=== PATIENT | female | born 1945 | race Caucasian/White ===

== ENCOUNTER → 2019-04-15 13:11 | Outpatient (CLI) | payer OTHER, SELFPAY ==
--- NOTE | 2019-04-15 13:16 | DI.RAD.S_ITS ---
PROCEDURE: XR HAND LT MIN 3V INDICATIONS: Fall, 5th finger pain and bruising TECHNIQUE: 3 views of the hand(s) acquired. COMPARISON: None. FINDINGS: Bones: No fractures or dislocations. Carpal bones are normally aligned. No suspicious bony lesions. Joint space narrowing and yobany--articular osteophyte formation at the interphalangeal joints of the digits is present, as well as at the 1st carpal metacarpal joint and scaphotrapezial joint. Soft tissues: No suspicious soft tissue calcifications. IMPRESSION: 1. Osteoarthritis. 2. No acute fracture. No osseous lesion. If symptoms and/or clinical suspicion for pathology persist, further assessment with repeat, or advanced imaging (e.g., CT, MRI, or bone scan) may be helpful for further assessment. Dictated by: Debbie Menjivar M.D. on 04/15/2019 at 13:44 Approved by: Debbie Menjivar M.D. on 04/15/2019 at 13:45
--- NOTE | 2019-04-15 13:16 | DI.RAD.S_ITS ---
PROCEDURE: XR RIBS LT MIN 3V W CXR1V INDICATIONS: Fall, L rib pain TECHNIQUE: 2 views of the left ribs were acquired, along with a single view chest. COMPARISON: None. FINDINGS: Surgical changes and devices: None. Bones and chest wall: No fractures or dislocations. No suspicious bony lesions. Overlying soft tissues appear unremarkable. Lungs and pleura: No pleural effusions or pneumothorax. Lungs appear clear. Mediastinum: Mediastinal contours appear normal. Heart size is normal. IMPRESSION: No acute fracture. No osseous lesion. If symptoms and/or clinical suspicion for pathology persist, further assessment with repeat, or advanced imaging (e.g., CT or bone scan) may be helpful for further assessment. Dictated by: Debbie eMnjivar M.D. on 04/15/2019 at 13:45 Approved by: Debbie Menjivar M.D. on 04/15/2019 at 13:46
== END ==
PROVIDERS: PCP Family Medicine; Visit Provider Physician Assistant
DX: R07.81 Pleurodynia (principal); S60.052A Contusion of left little finger without damage to nail, initial encounter; M19.042 Primary osteoarthritis, left hand; W19.XXXA Unspecified fall, initial encounter
CPT/HCPCS: 71101; 73130

== ENCOUNTER → 2022-01-24 12:26 | Outpatient (CLI) | payer OTHER, SELFPAY ==
--- NOTE | 2022-01-24 | DI.RAD.S_ITS ---
PROCEDURE: FL BARIUM SWALLOW INDICATIONS: Dysphagia, unspecified COMPARISON: None. FINDINGS: Function: There is normal esophageal peristalsis. No elicited gastroesophageal reflux. There is normal transit of a calibrated barium tablet through the esophagus into the stomach. There is pooling of contrast material in the bilateral vallecula and piriform sinuses which was cleared with repeat swallows. Morphology: Air-contrast images demonstrate normal mucosal morphology. Single contrast views show no esophageal strictures, extrinsic mass effects, or diverticula. Limited images of the stomach demonstrate normal appearance. IMPRESSION: 1. No evidence of Zenker's diverticulum. 2. Pooling of contrast material the bilateral vallecula and piriform sinuses. If there is clinical concern for pathologic pooling, consider Speech Pathology coordinated modified barium swallow study. Dictated by: Lexy Perez MD, PhD on 01/24/2022 at 14:19 Approved by: Lexy Perez MD, PhD on 01/24/2022 at 14:21
== END ==
PROVIDERS: PCP Internal Medicine; Referring Provider Internal Medicine Gastroenterology; Visit Provider Internal Medicine Gastroenterology
DX: R13.10 Dysphagia, unspecified (principal)
CPT/HCPCS: 74220

== ENCOUNTER → 2022-04-04 10:18 | Outpatient (CLI) | payer OTHER, SELFPAY ==
--- NOTE | 2022-04-04 | DI.RAD.S_ITS ---
PROCEDURE: FL BARIUM SWALLOW W SPEECH INDICATIONS: Dysphagia, unspecified COMPARISON: TECHNIQUE: Examination was conducted in conjunction with speech pathology per standard protocol. In the lateral projection, filming was performed of the patient swallowing. AP projection filming may also be performed with patient swallowing. COMPARISON: [facility], , [place] BARIUM SWALLOW, 01/24/2022, 13:01. FINDINGS: Function: The oral preparatory phase appears normal, with proper containment. The subsequent oral propulsive phase, pharyngeal phase, and esophageal phase of swallowing also appear normal with all proffered substances. Single episode of laryngotracheal penetration with silent aspiration with thin liquid. No pathologic vallecular pooling. Morphology: No cricopharyngeal bar is identified. No cervical esophageal webs. No Zenker's diverticulum. No strictures. IMPRESSION: Single episode of laryngotracheal penetration and silent aspiration with ingestion of thin liquids. Otherwise, unremarkable modified barium swallow study. Please refer to separate speech pathology report for further details. Dictated by: Prakash Cano M.D. on 04/04/2022 at 13:01 Approved by: Prakash Cano M.D. on 04/04/2022 at 13:02
--- NOTE | 2022-04-04 17:24 | ST.SWALLOW ---
Visit Care Team Role Provider Type Toney Valle MD Attending Provider Non-Staff Family Provider Primary Care Provider Referring Provider Specialty: Internal Medicine Address: [address] [place] [address] [address], [place], [address] Email: Modified Barium Swallow Study EXCELSIOR MACHINE FEEDER Modified Barium Swallow Study Start: 04/04/22 17:02 Freq: Status: Active Protocol: Document 04/04/22 17:02 LNK (Rec: 04/04/22 17:24 LNK [id number]) Modified Barium Swallow Study Total Time Visit Start Time 11:30 Visit Stop Time 12:30 Total Visit Minutes [address] Valle Reason for Referral dysphagia Setting Setting Outpatient Care Patient Information Identification Type Name,Date of Patient History Pt was seen today for a clinical swallowing evaluation secondary to her c/o frequent cough/choking with any thing she eats or drinks. She reports significant PND with possible allergies. Pt has not been evaluated by an integration assistant. Additionally, she reports coughing on her saliva . Pt recently underwent a barium swallow study which determined atypical pooling in the valeculla and the pyriform sinuses.. Subjective Observations Pt was seated in the fluoroscopy cchair with directions nad procedures described to her, She agreed to continue. Patient Positioning Position View Lat-A/P Imaging Lateral View Textures Administered Trials Presented Thin Liquid via Spoon,Thin Liquid via Cup,[place] Liquid via Spoon,[place] Liquid via Cup,Pudding Thick Liquid via Spoon,Regular Textures,Barium Tablet Oral Phase Source: MBSIMP (TM) (C) Bolus Specific Scoring Grid Lip Closure No Impairment (WNL) Tongue Control During Bolus Hold No Impairment (WNL) Bolus Prep/Mastication No Impairment (WNL) Bolus Transport/Lingual Motion No Impairment (WNL) A/P Lingual Propulsion Delay No Oral Residue No Impairment (WNL) Residue Clearing No Impairment (WNL) Nasal Regurgitation No Additional Oral Phase Observations OME was observed to be WNL. DKS was also WNL U/L dentures in place and well fitted. Oral phase was observed to be WFL Pharyngeal Phase Source: MBSIMP (TM) (C) Bolus Specific Scoring Grid Delayed Initiation of Pharyngeal Swallow No Soft Palate Elevation No Impairment (WNL) Tongue Base Strength/Range of Motion Mild Impairment Residue Along the Tongue Base WNL to trace Clearance of Residue Along Tongue Base No Impairment (WNL) Laryngeal Elevation Mild Impairment Anterior Hyoid Movement No Impairment (WNL) Epiglottic Range of Motion Mild Impairment Vallecular Residue No: WNL to trace Clearance of Vallecular Residue WFL Laryngeal Vestibular Closure Mild Impairment Pharyngeal Contraction Minimal Impairment Posterior Pharyngeal Wall Residue No Residue in the Pyriform Sinuses No: WNL to trace Esophageal Clearance Upright Position WFL Pharyngoesophageal Backflow Observed No A/P View Textures Administered Trials Presented Barium Tablet A/P View Observations Pharyngeal Contraction No Impairment (WNL) Vocal Fold Function Good Esophageal Function No Impairment (WNL) Clinical Impressions Dysphagia Type pharyngeal Findings Pt presented with mild pharyngeal phase dysphagia secondary to reduced strength of the tongue base. This weakness contributed to reduced laryngeal, epiglottal inversion and complete seal of the laryngeal vestibule. Penetration was observed with thin liquids x5 (PAS=3). Possible trace aspiration x1 which was cleared with cued cough. No reflexive cough observed today. No penetration or aspiration noted with nectar thick liquids. Minimal pharyngeal pooling. Rehabilitation Potential Excellent Patient Appropriate for Therapy Yes Recommendations Diet Liquids Order Thin Diet Order Clear Liquids Medication Recommendation As Tolerated Aspiration Precautions Recommended Precautions Upright at 90 Degrees, Supraglottic Swallow Treatment Plan Therapy Recommendations Inpatient Speech Therapy,Base of Tongue Exercises, Compensatory Strategy Education Compensatory Strategies Recommendations Sitting Upright (90 deg), Supraglottic Swallow Short Term Goals Pt will follow safe swallow strategies to reduce laryngeal penetration Pt will perform tongue base exercises as prescribed to increase laryngeal elevation. Conveyor Monitor Goals Pt will tolerate the least restrictive diet without s/sx aspiration.
== END ==
PROVIDERS: Family Provider Internal Medicine; PCP Internal Medicine; Referring Provider Internal Medicine; Visit Provider Internal Medicine
DX: R13.10 Dysphagia, unspecified (principal)
CPT/HCPCS: 74230; 92611

== ENCOUNTER 2022-06-03 10:30 | Outpatient (RCR) | payer OTHER, SELFPAY ==
--- NOTE | 2022-03-18 17:26 | ST.OPIE ---
Visit Care Team Role Provider Type Toney Valle MD Attending Provider Non-Staff Family Provider Primary Care Provider Referring Provider Specialty: Internal Medicine Address: [address] [place] [address] [address], [place], [address] Email: Speech-Language Pathology Initial Evaluation BABY REGISTRY SALES CONSULTANT Clinical Swallow Evaluation Start: 03/18/22 14:22 Freq: Status: Active Protocol: Document 03/18/22 17:01 LNK (Rec: 03/18/22 17:26 LNK [id number]) Clinical Swallow Evaluation Session Time Visit Start Time 14:30 Visit Stop Time 15:30 Total Visit Minutes 60 Visit Information Visit Number 1 Plan of Care Dates 03/18/22- Referral Referring Provider Dr. Valle Reason for Referral dysphagia Setting Assessment Location Outpatient Care Visit Type Note Type Initial evaluation Next Note Type Next Note Type Re-evaluation Patient Information Identification Type Name,Date of History Pt was seen today for a clinical swallowing evaluation secondary to her c/o frequent cough/choking with any thing she eats or drinks. She reports significant PND with possible allergies. Pt has not been evaluated by an protective signal installer. Additionally, she reports coughing on her saliva . Pt recently underwent a barium swallow study which determined atypical pooling in the valeculla and the pyriform sinuses. Subjective Observations Pt was accompanied by her Reported by Patient Current Diet Regular,Thin liquids Objective Assessment Mental Status Alert,Responsive,Cooperative Oral Integrity WFL Dentition Upper dentures/partials,Lower dentures/partials Lip Function Within normal limits Tongue Function Within normal limits Jaw Function Within normal limits Hard/Soft Palate Function Within normal limits Comment OME was obsered to be WNL. DKS was also WNL U/L dentures in place and well fitted Food and Liquid Trials Position During Assessment Upright (90 degrees) Liquids Trialed Thin Solids Trialed Dysphagia Mechanical,Regular Administration Type Cup single sip,Self-feeding Oral Impairment Within functional limits Oral Phase Comments Good Mastication with rotary chew. Bolus control and A=P transition WNL Pharyngeal Impairment Mildly impaired Pharyngeal Phase Comments The pt was noted to swallow each PO trial twice. Upon palpation, the hyolaryngeal elevation for each initial swallow seemed to be weak; however, the subsequent swallow for each trial was felt to be higher with more hyoid movement. No cough/ choke observed. Pt did report , after 3 teaspoons full of yogurt, a sensation of globus at her lower neck area. A trial of 1/4 consuelo cracker resulted in the same sensation . Following each trial, the pt was instructed to drink some water, which the pt reported was helpful in decreasing the globus sensation. Fatigue/Endurance Endurance WNL Results Pharyngeal phase dysphagia is suspected. A Modified Barium Swallow Study is recommended to better determine the overall function of the pt's pharyngeal structures for swallowing. A MBSS is currently scheduled for April 04, 2022. Pt has not been evaluated by an protective signal installer , which is also recommended. Findings Swallowing Function Pharyngeal phase dysphagia Severity of Swallow Impairment Mildly-moderately impaired Impact on Safety and Functioning Risk for aspiration Recommendations Instrumental Assessment Yes Swallowing Treatment Yes Frequency to be determined following the MBSS Recommended Solids Regular Recommended Liquids Thin Safety Precautions/Swallowing Remain upright (90 degrees) Recommendations during all oral intake,Small bites and sips when eating, Slow rate; swallow between bites,Alternate liquids and solids Medication Recommendations As Tolerated Education Patient/Caregiver Education Described results of evaluation,Patient expressed understanding of evaluation, Patient expressed agreement with goals & treatment plans, Family/caregivers expressed understanding of evaluation, Family/caregivers expressed agreement with goals & treatment plans,Family/ caregivers expressed understanding of safety precautions,Family/caregivers expressed understanding of feeding recommendations Goals Short-term Goals Instrumental assessment of pharyngeal swallow via MBSS
--- NOTE | 2022-03-18 17:27 | ST.OPPOC ---
Physical, Occupational & Speech Therapy At [facility] Visit Care Team Role Provider Type Toney Valle MD Attending Provider Non-Staff Family Provider Primary Care Provider Referring Provider Address: [facility] [address], [place], [address] Speech Pathology Plan of Care Plan of Care Dates 03/18/22- Referring Provider Dr. Valle Patient History Pt was seen today for a clinical swallowing evaluation secondary to her c/o frequent cough/ choking with any thing she eats or drinks. She reports significant PND with possible allergies. Pt has not been evaluated by an furnace repair mechanic. Additionally, she reports coughing on her saliva. Pt recently underwent a barium swallow study which determined atypical pooling in the valeculla and the pyriform sinuses. Short-term Goals Instrumental assessment of pharyngeal swallow via MBSS Comment: Electronically Signed by: SKYLAR Bob 03/18/22 1017 If you are in agreement with this Plan of Care, please return a signed and dated copy. I have reviewed this Plan of Care and certify that the skilled therapy services above are required to meet the patient?s needs. Physician Signature Date Printed Name and Credentials Clinical Instructor Signature Printed Name and Credentials
--- NOTE | 2022-04-09 13:43 | ST.IPDYTX ---
Visit Care Team Role Provider Type Toney Valle MD Attending Provider Non-Staff Family Provider Primary Care Provider Referring Provider Specialty: Internal Medicine Address: [address] [place], [place] [address], [place], [address] Email: FOOT DOCTOR Dysphagia Treatment FOOT DOCTOR Dysphagia Treatment Start: 03/18/22 14:22 Freq: Status: Active Protocol: Document 04/09/22 12:17 LNK (Rec: 04/09/22 13:42 LNK [id number]) Dysphagia Treatment Visit Information Visit Number 2 Plan of Care Dates 03/18/22- Setting Assessment Location Outpatient Care Visit Type Note Type Treatment Note Next Note Type Next Note Type Treatment Note Patient Information Identification Type Name,Date of Treatment Treatment Activities No PO trials due to education for the pt and her re: computer generated video normal swallow and review of pt's MBSS for comparison. Tongue base exercises ( Patricia, Misako, and rapid jaw movement) were demonstrated for pt. Pt was able to perform all exercises with minimal difficulty. Written descriptions provided for the pt. All questions were answered. Assessment Patient Response to Treatment Excellent Rehab Potential Excellent Diet Recommendations Recommendations Continue Current Diet Aspiration Precautions Recommended Precautions Supraglottic Swallow Additional Precautions demonstrated supraglotic for pt with written description provided Treatment Plan Appropriate for Continued Therapy Yes Dysphagia Goals Pt will safely tolerate the least restrictive diet without s/sx aspiration Pt will follow HEP at home as prescribed for improved strength and ROM of pharyngeal structures
--- NOTE | 2022-04-16 10:07 | ST.IPDYTX ---
Visit Care Team Role Provider Type Toney Valle MD Attending Provider Non-Staff Family Provider Primary Care Provider Referring Provider Specialty: Internal Medicine Address: [facility] [address], [place], [address] Email: NATURAL GAS BASIS TRADER Dysphagia Treatment NATURAL GAS BASIS TRADER Dysphagia Treatment Start: 03/18/22 14:22 Freq: Status: Active Protocol: Document 04/16/22 10:00 LNK (Rec: 04/16/22 10:06 LNK [id number]) Dysphagia Treatment Session Time Visit Start Time 14:30 Visit Stop Time 15:30 Total Visit Minutes 60 Visit Information Visit Number 3 Plan of Care Dates 03/18/22- Setting Assessment Location Outpatient Care Visit Type Note Type Treatment Note Next Note Type Next Note Type Treatment Note Patient Information Identification Type Name,Date of Subjective Observations Pt was accompanied by her Treatment Treatment Activities Reviewed tongue base exercises (Patricia, Misako, and rapid jaw movement) with the pt. Pt reports she is doing exercises with minimal difficulty. She did report sore muscles at the base of tongue with rapid jaw movement . Recommended that the pt reduce the frequnce of jaw movement and # of times/day. Pt agreed. All questions were answered. Assessment Patient Response to Treatment Excellent Rehab Potential Excellent Diet Recommendations Recommendations Continue Current Diet Liquids Order Thin Diet Order Clear Liquids Medication Recommendations As Tolerated Aspiration Precautions Recommended Precautions Supraglottic Swallow Additional Precautions reviewed with pt Treatment Plan Appropriate for Continued Therapy Yes Dysphagia Goals Pt will safely tolerate the least restrictive diet without s/sx aspiration Pt will follow HEP at home as prescribed for improved strength and ROM of pharyngeal structures
--- NOTE | 2022-05-15 09:11 | ST.IPDYTX ---
Visit Care Team Role Provider Type Toney Valle MD Attending Provider Non-Staff Family Provider Primary Care Provider Referring Provider Specialty: Internal Medicine Address: [facility] [address], [place], [address] Email: FISH AND WILDLIFE TECHNICIAN Dysphagia Treatment FISH AND WILDLIFE TECHNICIAN Dysphagia Treatment Start: 03/18/22 14:22 Freq: Status: Active Protocol: Document 05/15/22 08:33 LNK (Rec: 05/15/22 08:34 LNK [id number]) Dysphagia Treatment Session Time Visit Start Time 08:30 Visit Stop Time 09:00 Total Visit Minutes 30 Visit Information Visit Number 4 Plan of Care Dates 03/18/22-06/25/22 Setting Assessment Location Outpatient Care Visit Type Note Type Progress Note Next Note Type Next Note Type Treatment Note Patient Information Identification Type Name,Date of Subjective Observations Pt was accompanied by her Treatment Liquids Trialed Thin Solids Trialed Dysphagia Mechanical,Regular Treatment Activities Reviewed tongue base exercises (Patricia, Misako, and rapid jaw movement) with the pt. Added resistance to the Misako (stick tongue ouit further) and the Patricia ( increase to tile picker credit card with straw) and added Shaker exercise. Pt reports she is doing exercises with minimal difficulty. She reported no more sore muscles with rapid jaw movement. Pt agreed. All questions were answered. Assessment Patient Response to Treatment Excellent Rehab Potential Excellent Assessment of Improvement pt reports that swallowing has improved with very little coughing. Pt has been consistently practicing HEP with reported success. Am recommending a repeat MBSS at the end of May to determine the level of improvement and current aspiration risk. Pt is in agreement Diet Recommendations Recommendations Continue Current Diet Liquids Order Thin Diet Order Clear Liquids Medication Recommendations As Tolerated Comments RECOMMEND REPEAT MBSS TO DETERMINE HEP EFFICACY Aspiration Precautions Recommended Precautions Supraglottic Swallow Additional Precautions reviewed with pt Treatment Plan Appropriate for Continued Therapy Yes Therapy Recommendations REPEAT BARIUM SWALLOW WITH SPEECH (mbss) Dysphagia Goals Pt will safely tolerate the least restrictive diet without s/sx aspiration Pt will follow HEP at home as prescribed for improved strength and ROM of pharyngeal structures
--- NOTE | 2022-05-15 09:11 | ST.OPPOC ---
Physical, Occupational & Speech Therapy At [facility] Visit Care Team Role Provider Type Toney Valle MD Attending Provider Non-Staff Family Provider Primary Care Provider Referring Provider Address: [address], [place], [address] Speech Pathology Plan of Care Plan of Care Dates 03/18/22-06/25/[address] Valle Patient History Pt was seen today for a clinical swallowing evaluation secondary to her c/o frequent cough/ choking with any thing she eats or drinks. She reports significant PND with possible allergies. Pt has not been evaluated by an sharepoint engineer. Additionally, she reports coughing on her saliva. Pt recently underwent a barium swallow study which determined atypical pooling in the valeculla and the pyriform sinuses. Short-term Goals Instrumental assessment of pharyngeal swallow via MBSS Comment: Reviewed tongue base exercises (Patricia, Misako, and rapid jaw movement) with the pt. Added resistance to the Misako (stick tongue ouit further) and the Patricia (increase to bead picker credit card with straw) and added Shaker exercise. Pt reports she is doing exercises with minimal difficulty. She reported no more sore muscles with rapid jaw movement. Pt agreed. All questions were answered. pt reports that swallowing has improved with very little coughing. Pt has been consistently practicing HEP with reported success. Am recommending a repeat MBSS at the end of May to determine the level of improvement and current aspiration risk. Pt is in agreement. REPEAT BARIUM SWALLOW WITH SPEECH (mbss) RECOMMENDED Electronically Signed by: SKYLAR Bob 05/15/22 0911 If you are in agreement with this Plan of Care, please return a signed and dated copy. I have reviewed this Plan of Care and certify that the skilled therapy services above are required to meet the patient?s needs. Physician Signature Date Printed Name and Credentials Clinical Instructor Signature Printed Name and Credentials
--- NOTE | 2022-06-03 11:20 | ST.IPDYTX ---
Visit Care Team Role Provider Type Toney Valle MD Attending Provider Non-Staff Family Provider Primary Care Provider Referring Provider Specialty: Internal Medicine Address: [facility] [address], [place], [address] Email: [facility] [place] Dysphagia Treatment [facility] [place] Dysphagia Treatment Start: 03/18/22 14:22 Freq: Status: Active Protocol: Document 06/03/22 10:28 LNK (Rec: 06/03/22 11:19 LNK [id number]) Dysphagia Treatment Session Time Visit Start Time 08:30 Visit Stop Time 09:00 Total Visit Minutes 30 Visit Information Visit Number 5 Plan of Care Dates 03/18/22-06/25/22 Setting Assessment Location Outpatient Care Visit Type Note Type Progress Note Next Note Type Next Note Type Treatment Note Patient Information Identification Type Name,Date of Subjective Observations Pt was accompanied by her Treatment Liquids Trialed Thin Solids Trialed Dysphagia Mechanical,Regular Treatment Activities Reviewed tongue base exercises (Patricia, Misako, and rapid jaw movement) with the pt. Added resistance to the Misako (stick tongue out further) and the Patricia. Pt reports she almost getting the credit card lifted with straw. Pt reports she is doing exercises with minimal difficulty. She did note some infrahyoid mucle soreness. Recommended she reduce frequency of rapid jaw exercises each day. Pt agreed . All questions were answered. Assessment Patient Response to Treatment Excellent Rehab Potential Excellent Assessment of Improvement pt reports very little coughing. Pt has been consistently practicing HEP with reported success. Am recommending a repeat MBSS at the end of May to determine the level of improvement and current aspiration risk. Pt is in agreement Diet Recommendations Recommendations Continue Current Diet Liquids Order Thin Diet Order Clear Liquids Medication Recommendations As Tolerated Comments RECOMMEND REPEAT MBSS TO DETERMINE HEP EFFICACY Aspiration Precautions Recommended Precautions Supraglottic Swallow Additional Precautions reviewed with pt Treatment Plan Appropriate for Continued Therapy Yes Therapy Recommendations REPEAT BARIUM SWALLOW WITH SPEECH (mbss) Dysphagia Goals Pt will safely tolerate the least restrictive diet without s/sx aspiration Pt will follow HEP at home as prescribed for improved strength and ROM of pharyngeal structures
== END 2022-10-30 11:42 | disposition home or self-care (01) ==
LOC: SP 10:30
PROVIDERS: Family Provider Internal Medicine; PCP Internal Medicine; Referring Provider Internal Medicine; Visit Provider Internal Medicine
DX: R13.10 Dysphagia, unspecified (principal)
CPT/HCPCS: 92526; 92610

== ENCOUNTER → 2022-10-02 13:29 | Outpatient (CLI) | payer OTHER, SELFPAY ==
--- NOTE | 2022-10-02 | DI.RAD.S_ITS ---
PROCEDURE: [place] BARIUM SWALLOW W SPEECH INDICATIONS: Dysphagia COMPARISON: TECHNIQUE: Examination was conducted in conjunction with speech pathology per standard protocol. In the lateral projection, filming was performed of the patient swallowing. AP projection filming may also be performed with patient swallowing. COMPARISON: [facility], [place] BARIUM SWALLOW, 01/24/2022, 13:01. [facility], [place] BARIUM SWALLOW W SPEECH, 04/04/2022, 11:35. FINDINGS: Function: The oral preparatory phase appears normal, with proper containment. The subsequent oral propulsive phase, pharyngeal phase, and esophageal phase of swallowing also appear normal with all proffered substances. Trace laryngotracheal penetration without aspiration. Mild vallecular pooling. Morphology: No cricopharyngeal bar is identified. No cervical esophageal webs. No Zenker's diverticulum. No strictures. IMPRESSION: 1. Mild valllicular pooling. 2. Trace laryngeal penetration. No aspiration. 3. Please see separate speech pathologist's report. Dictated by: Mindy Palmer M.D. on 10/03/2022 at 8:14 Approved by: Mindy Palmer M.D. on 10/03/2022 at 8:18
--- NOTE | 2022-10-02 14:00 | ST.SWALLOW ---
Visit Care Team Role Provider Type Toney Valle MD Attending Provider Non-Staff Family Provider Primary Care Provider Referring Provider Specialty: Internal Medicine Address: [address] [place] [address] [address], [place], [address] Email: Modified Barium Swallow Study [employer] Modified Barium Swallow Study Start: 10/02/22 17:06 Freq: Status: Active Protocol: Document 10/02/22 17:07 ZS (Rec: 10/02/22 17:14 ZS [id number]) Modified Barium Swallow Study Total Time Visit Start Time 13:30 Visit Stop Time 14:00 Total Visit Minutes 30 Setting Setting Outpatient Care Patient Information Identification Type Name Patient History Initial outpatient swallow assessment completed at [facility] on 03/18/22 due to frequent coughing/choking when eating and drinking. MBS prior to swallow assessment determined atypical pooling in valeculla and pyriform sinuses. Pharyngeal phase dysphagia was suspected and repeat MBS was completed on 04/04/22. Results from 04/04/22 MBS indicated pharyngeal phase dysphagia secondary to reduced strength of the tongue base. This weakness contributed to reduced laryngeal, epiglottal inversion, and complete seal of the laryngeal vestibule. Penetration was observed with thin liquids x5 (PAS=3). Possible trace aspiration x1 which was cleared with cued cough. No reflexive cough observed today. No penetration or aspiration noted with nectar thick liquids. Minimal pharyngeal pooling. Subjective Observations Alicja reported decreased coughing and choking at home with use of exercises. Provided review of process and procedure and pt agreed to participate. Patient Positioning Position View Lat-A/P Imaging Lateral View Textures Administered Trials Presented Thin Liquid via Cup,[place] Liquid via Cup,Regular Textures Oral Phase Source: MBSIMP (TM) (C) Bolus Specific Scoring Grid Lip Closure No Impairment (WNL) Tongue Control During Bolus Hold Moderate Impairment Bolus Prep/Mastication No Impairment (WNL) Bolus Transport/Lingual Motion No Impairment (WNL) Oral Residue WFL Residue Clearing WFL Nasal Regurgitation No Additional Oral Phase Observations Oral residue noted on tongue as well as on floor of mouth. Mastication and a/p propulsion of bolus was timely and efficient. Oral phase appeared WFL with exception of tongue control during bolus hold that resulted in posterior loss of bolus and pooling in valleculla and pyriforms. Pharyngeal Phase Source: MBSIMP (TM) (C) Bolus Specific Scoring Grid Delayed Initiation of Pharyngeal Swallow Yes: head of bolus in pyriforms Soft Palate Elevation No Impairment (WNL) Tongue Base Strength/Range of Motion Mild Impairment Residue Along the Tongue Base Yes Clearance of Residue Along Tongue Base WFL Laryngeal Elevation Mild Impairment Anterior Hyoid Movement No Impairment (WNL) Epiglottic Range of Motion Mild Impairment Vallecular Residue Yes Clearance of Vallecular Residue Mild Impairment Laryngeal Vestibular Closure Mild Impairment Pharyngeal Stripping Wave No Impairment (WNL) Pharyngeal Contraction Minimal Impairment Posterior Pharyngeal Wall Residue Yes Clearance of Posterior Pharyngeal Wall Minimal Impairment Residue Upper Esophageal Sphincter Opening Minimal Impairment Residue in the Pyriform Sinuses Yes Clearance of Residue in the Pyriform Minimal Impairment Sinuses Esophageal Clearance Upright Position No Impairment (WNL) Pharyngoesophageal Backflow Observed No Additional Pharyngeal Phase Observations Posterior loss of bolus during tongue hold that resulted in moderate pooling in valleculla and pyriforms. Pharyngeal swallow triggered with head of bolus in pyriforms. Epiglottic inversion was mildly reduced which negatively contributed to laryngeal vestibule closure and bolus was observed in this space across all thin trials. Difficult to determine if contrast in laryngeal vestibule was a result of residue or recurring penetrations. Chin tuck did not impact penetration of liquids and head turn to right negatively impacted swallow safety, with pt aspirating thin liquid (PAS 5) x1 when using this technique. A/P View Textures Administered Trials Presented Thin Liquid via Cup,Barium Tablet A/P View Observations Pharyngeal Contraction No Impairment (WNL) Esophageal Function No Impairment (WNL) Esophageal Clearance Upright Position No Impairment (WNL) Clinical Impressions Dysphagia Type Mild Pharyngeal Phase Dysphagia Findings Pt presented with continued mild pharyngeal phase dysphagia secondary to reduced strength of the tongue base. As noted in previous MBS assessment, tongue base weakness contributed to reduced laryngeal vestibular closure and epiglottic inversion. Penetration was observed across all thin liquid trials, though unclear if this was due to residue in this space or if recurrent penetrations took place. Chin tuck was not effective in reducing penetration and head turn to right negatively impacted swallow safety, with pt aspirating thin liquid x1 ( PAS 5) when this technique was used. No penetration or aspiration observed with nectar thick liquids. Pt reported completing HEP provided during speech therapy . Discussed recommendation for continued exercises. Pt may return to outpatient speech therapy for additional strategies and repeat modified barium swallow study is recommended in 6 months. Rehabilitation Potential Good Patient Appropriate for Therapy Yes Recommendations Diet Liquids Order Thin Diet Order Regular Medication Recommendation As Tolerated Aspiration Precautions Recommended Precautions Upright at 90 Degrees,Small Bites/Sips Treatment Plan Therapy Recommendations Outpatient Speech Therapy,Base of Tongue Exercises Compensatory Strategies Recommendations Sitting Upright (90 deg),Small Bites and Sips
--- NOTE | 2022-10-03 09:03 | ST.SWALLOW ---
Visit Care Team Role Provider Type Toney Valle MD Attending Provider Non-Staff Family Provider Primary Care Provider Referring Provider Specialty: Internal Medicine Address: [address] [place] [address] [address], [place], [address] Email: Modified Barium Swallow Study [employer] Modified Barium Swallow Study Start: 10/02/22 17:06 Freq: Status: Active Protocol: Document 10/02/22 17:07 ZS (Rec: 10/02/22 17:14 ZS [id number]) Modified Barium Swallow Study Total Time Visit Start Time 13:30 Visit Stop Time 14:00 Total Visit Minutes 30 Setting Setting Outpatient Care Patient Information Identification Type Name Patient History Initial outpatient swallow assessment completed at [facility] on 03/18/22 due to frequent coughing/choking when eating and drinking. MBS prior to swallow assessment determined atypical pooling in valeculla and pyriform sinuses. Pharyngeal phase dysphagia was suspected and repeat MBS was completed on 04/04/22. Results from 04/04/22 MBS indicated pharyngeal phase dysphagia secondary to reduced strength of the tongue base. This weakness contributed to reduced laryngeal, epiglottal inversion, and complete seal of the laryngeal vestibule. Penetration was observed with thin liquids x5 (PAS=3). Possible trace aspiration x1 which was cleared with cued cough. No reflexive cough observed today. No penetration or aspiration noted with nectar thick liquids. Minimal pharyngeal pooling. Subjective Observations Alicja reported decreased coughing and choking at home with use of exercises. Provided review of process and procedure and pt agreed to participate. Patient Positioning Position View Lat-A/P Imaging Lateral View Textures Administered Trials Presented Thin Liquid via Cup,[place] Liquid via Cup,Regular Textures Oral Phase Source: MBSIMP (TM) (C) Bolus Specific Scoring Grid Lip Closure No Impairment (WNL) Tongue Control During Bolus Hold Moderate Impairment Bolus Prep/Mastication No Impairment (WNL) Bolus Transport/Lingual Motion No Impairment (WNL) Oral Residue WFL Residue Clearing WFL Nasal Regurgitation No Additional Oral Phase Observations Oral residue noted on tongue as well as on floor of mouth. Mastication and a/p propulsion of bolus was timely and efficient. Oral phase appeared WFL with exception of tongue control during bolus hold that resulted in posterior loss of bolus and pooling in valleculla and pyriforms. Pharyngeal Phase Source: MBSIMP (TM) (C) Bolus Specific Scoring Grid Delayed Initiation of Pharyngeal Swallow Yes: head of bolus in pyriforms Soft Palate Elevation No Impairment (WNL) Tongue Base Strength/Range of Motion Mild Impairment Residue Along the Tongue Base Yes Clearance of Residue Along Tongue Base WFL Laryngeal Elevation Mild Impairment Anterior Hyoid Movement No Impairment (WNL) Epiglottic Range of Motion Mild Impairment Vallecular Residue Yes Clearance of Vallecular Residue Mild Impairment Laryngeal Vestibular Closure Mild Impairment Pharyngeal Stripping Wave No Impairment (WNL) Pharyngeal Contraction Minimal Impairment Posterior Pharyngeal Wall Residue Yes Clearance of Posterior Pharyngeal Wall Minimal Impairment Residue Upper Esophageal Sphincter Opening Minimal Impairment Residue in the Pyriform Sinuses Yes Clearance of Residue in the Pyriform Minimal Impairment Sinuses Esophageal Clearance Upright Position No Impairment (WNL) Pharyngoesophageal Backflow Observed No Additional Pharyngeal Phase Observations Posterior loss of bolus during tongue hold that resulted in moderate pooling in valleculla and pyriforms. Pharyngeal swallow triggered with head of bolus in pyriforms. Epiglottic inversion was mildly reduced which negatively contributed to laryngeal vestibule closure and bolus was observed in this space across all thin trials. Difficult to determine if contrast in laryngeal vestibule was a result of residue or recurring penetrations. Chin tuck did not impact penetration of liquids and head turn to right negatively impacted swallow safety, with pt aspirating thin liquid (PAS 5) x1 when using this technique. A/P View Textures Administered Trials Presented Thin Liquid via Cup,Barium Tablet A/P View Observations Pharyngeal Contraction No Impairment (WNL) Esophageal Function No Impairment (WNL) Esophageal Clearance Upright Position No Impairment (WNL) Clinical Impressions Dysphagia Type Mild Pharyngeal Phase Dysphagia Findings Pt presented with continued mild pharyngeal phase dysphagia secondary to reduced strength of the tongue base. As noted in previous MBS assessment, tongue base weakness contributed to reduced laryngeal vestibular closure and epiglottic inversion. Penetration was observed across all thin liquid trials, though unclear if this was due to residue in this space or if recurrent penetrations took place. Chin tuck was not effective in reducing penetration and head turn to right negatively impacted swallow safety, with pt aspirating thin liquid x1 ( PAS 5) when this technique was used. No penetration or aspiration observed with nectar thick liquids. Pt reported completing HEP provided during speech therapy . Discussed recommendation for continued exercises. Pt may return to outpatient speech therapy for additional strategies and repeat modified barium swallow study is recommended in 6 months. Rehabilitation Potential Good Patient Appropriate for Therapy Yes Recommendations Diet Liquids Order Thin Diet Order Regular Medication Recommendation As Tolerated Aspiration Precautions Recommended Precautions Upright at 90 Degrees,Small Bites/Sips Treatment Plan Therapy Recommendations Outpatient Speech Therapy,Base of Tongue Exercises Compensatory Strategies Recommendations Sitting Upright (90 deg),Small Bites and Sips
== END ==
PROVIDERS: Family Provider Internal Medicine; PCP Internal Medicine; Referring Provider Internal Medicine; Visit Provider Internal Medicine
DX: R13.10 Dysphagia, unspecified (principal)
CPT/HCPCS: 74230; 92611

== ENCOUNTER 2022-10-30 13:35 | Outpatient (RCR) | payer OTHER, SELFPAY ==
--- NOTE | 2022-10-30 15:07 | ST.OPIE ---
Visit Care Team Role Provider Type Toney Valle MD Attending Provider Non-Staff Family Provider Primary Care Provider Referring Provider Specialty: Internal Medicine Address: [address] [place] [address] [address], [place], [address] Email: Speech-Language Pathology Initial Evaluation [employer] Clinical Swallow Evaluation Start: 10/30/22 14:34 Freq: Status: Active Protocol: Document 10/30/22 14:34 LNK (Rec: 10/30/22 15:03 LNK [id number]) Clinical Swallow Evaluation Session Time Visit Start Time 13:30 Visit Stop Time 14:20 Total Visit Minutes [address] Valle Setting Assessment Location Outpatient Care Visit Type Note Type Initial evaluation Patient Information Identification Type Name,Date of History Pt was seen today as a follow up appointment re: MBSS completed 10/02/22. pt had been seen for swallowing therapy from 03/18/22 to 06/03/22. Pt had reported significant improvement in her swallowing after following HEP for several months. Reported by Patient Current Diet Regular,Thin liquids Baseline Feeding Method Independent in self-feeding Objective Assessment Mental Status Alert,Responsive,Cooperative Oral Integrity WFL Dentition Dentures or partials present Lip Function Within normal limits Tongue Function Within normal limits Jaw Function Within normal limits Hard/Soft Palate Function Within normal limits Comment oral structures informally observed to be WFL. Speech intelligible at 100%. Food and Liquid Trials Results No PO trials were administered . Review and pt education provided re: most recent MBSS. The results of the MBSS indicated that since pt was intially seen in February 2022, there was significant improvement overall observed. Recent MBSS results indicated penetration x1 with thin liquids. Pt did not need to swallow x2 per each bolus as in the initial MBSS. Additionally, the epiglottis demonstrated increased ROM/ inversion and airway protection. Also noted, there was less phrayngeal pooling; residual contrast was cleared with subsequent swallow. Pt did demonstrate increased laryngeal penetration with head turn. No aspiration was observed. Discussed the pt current exercises and frequency, which pt remarked that she is doing them several times a day, consistently. She also reported no choking x several months. based on the results of the recent MBSS, a recommendation to swallow small amounts of thin liquids instead of larger swallows and /or consecutive swallows as that increases risk for aspiration. Pt agreed. As pt is performing swallow exercises and reports no choking, and the results of the MBSS document improvement, no additional swallow therapy is recommended at this time. Findings Swallowing Function Within functional limits Swallowing Function Comments Swallowing is WFL Severity of Swallow Impairment Within functional limits Comments No swallow therapy is recommended at this time. Prognosis Good Based on Cognitive status,Family support,Age Impact on Safety and Functioning No limitations Recommendations Instrumental Assessment No Swallowing Treatment No Recommended Solids Regular Recommended Liquids Thin Safety Precautions/Swallowing Small bites and sips when Recommendations eating,Sip by straw only Medication Recommendations As Tolerated Education Patient/Caregiver Education Described results of evaluation,Patient expressed understanding of evaluation, Patient expressed agreement with goals & treatment plans, Family/caregivers expressed understanding of evaluation, Family/caregivers expressed agreement with goals & treatment plans,Patient expressed understanding of safety precautions,Patient expressed understanding of feeding recommendations,Family /caregivers expressed understanding of safety precautions,Family/caregivers expressed understanding of feeding recommendations
== END 2022-11-03 14:16 | disposition home or self-care (01) ==
LOC: SP 13:35
PROVIDERS: Family Provider Internal Medicine; PCP Internal Medicine; Referring Provider Internal Medicine; Visit Provider Internal Medicine
DX: R13.10 Dysphagia, unspecified (principal)
CPT/HCPCS: 92610

== ENCOUNTER 2022-11-17 07:42 | Day surgery (SDC) | payer OTHER, SELFPAY ==
--- NOTE | 2022-11-17 | PATH_ITS ---
[facility] Accession Number: [id number] No. of containers..04 Tissue . 01 Material submitted: . PART A: stomach - ANTRUM BIOPSY PART B: gastrointestinal site - GASTRIC POLYP PART C: stomach - GASTRIC EROSIONS FROM BODY PART D: esophagus - MID ESOPHAGUS BIOPSY . 01 Diagnosis: A. Gastric Antrum, Biopsy: Gastric antral mucosa with features of reactive gastropathy. Negative for Helicobacter organisms by immunohistochemistry. Negative for intestinal metaplasia. Negative for dysplasia or malignancy. . B. Gastric Polyp: Gastric hyperplastic polyp. Negative for Helicobacter organisms by immunohistochemistry. Negative for intestinal metaplasia. Negative for dysplasia or malignancy. . C. Gastric Body, Biopsy: Gastric body mucosa with mild features of reactive gastropathy. No Helicobacter organisms identified. Negative for intestinal metaplasia. Negative for dysplasia or malignancy. . D. Mid Esophagus, Biopsy: Squamous epithelium with no diagnostic abnormality. Intraepithelial eosinophils are not increased. Negative for dysplasia and malignancy. [facility] 11/20/2022 1406 Local . 01 Electronically signed: . Claude Ricks MD, PhD, Pathologist NPI- [id number] . 01 Gross description: . Part A: ANTRUM BIOPSY: Received in formalin is 1 fragment(s) of marcial, soft tissue measuring 0.3 x 0.2 x 0.2 cm submitted entirely in 1 cassette(s) Part B: GASTRIC POLYP: Received in formalin is 1 fragment(s) of marcial, soft tissue measuring 0.2 x 0.1 x 0.1 cm submitted entirely in 1 cassette(s) Part C: GASTRIC EROSIONS FROM BODY: Received in formalin are 2 fragment(s) of marcial, soft tissue measuring 0.3 x 0.1 x 0.1 cm to 0.1 x 0.1 x 0.1 cm submitted entirely in 1 cassette(s) Part D: MID ESOPHAGUS BIOPSY: Received in formalin are 2 fragment(s) of marcial, soft tissue measuring 0.2 x 0.2 x 0.1 cm to 0.2 x 0.1 x 0.1 cm submitted entirely in 1 cassette(s) /CPE 11/18/2022 0722 Local . 01 Microscopic: . A. An immunohistochemical stain was performed to evaluate for Helicobacter organisms and is negative. The control stain showed appropriate reactivity. . B. An immunohistochemical stain was performed to evaluate for Helicobacter organisms and is negative. The control stain showed appropriate reactivity. . * This test was developed and its performance characteristics determined by [facility]. It has not been cleared or approved by the U.S. Food and Drug Administration. The FDA has determined that such clearance or approval is not necessary. This test is used for clinical purposes. It should not be regarded as investigational or for research. . 01 Pathologist provided ICD-10: R13.10, K29.70, K31.7 . 01 CPT . 764554, 418587, 847734, 632452, [id number] Specimen Comment: A courtesy copy of this report has been sent to [phone] Performed at: 01 [facility] [address] [place] [address] [address] [facility], [place], [place] [id number] MD Haroldo Kamara MD Phone: [phone]
[2022-11-17 07:56] VITALS: BP 171/77; PULSE 69; RESP 16; TEMP 36.2; O2SAT 95; BMI 38.7
[2022-11-17] MEDS: LACTATED RINGERS 1,000 ML 84 ML IV (08:11)
--- NOTE | 2022-11-17 08:27 | PM.HP.1 ---
History of Present Illness History of Present Illness Date Patient Seen: 11/17/22 Time Patient Seen: 08:27 Chief complaint: EGD w/poss bx & dilation Narrative: Here for dysphagia. I reviewed my recent office note. No changes. PFSH Social History household members: spouse Smoking Status: Never smoker alcohol intake: never Meds Home Medications and Allergies Home Medications Medication Instructions Recorded Confirmed Type losartan 25 mg PO DAILY 11/17/22 11/17/22 History omeprazole 20 mg PO DAILY 11/17/22 11/17/22 History Allergies Allergy/AdvReac Type Severity Reaction Status Date / Time No Known Drug Allergies Allergy Verified 11/17/22 07:51 Review of Systems Review of Systems ROS: Yes All systems reviewed with the patient and are negative except as otherwise documented Exam Vital Signs (past 8 hours): - 11/17/22 07:56 Temperature 97.2 F L Pulse Rate 69 Respiratory Rate 16 Blood Pressure 171/77 H Pulse Oximetry 95 Oxygen Delivery Method Room Air Oxygen Delivery Method Room Air Const General: cooperative HENMT Head: normal to inspection Eyes General: appearance normal, both eyes and all related structures Neck Neck: normal visual inspection Chest Chest: normal inspection of the chest Resp Effort & Inspection: normal respiratory effort Cardio Rate: regular rate GI Inspection: normal to inspection Skin General: no rashes or lesions noted Neuro General: patient alert and patient awake Extrem General: normal to inspection and no pedal edema Psych Appearance: grossly normal Assessment & Plan Assessment & Plan narrative: 77-year-old female with dysphagia. Upper endoscopy and possible empiric dilatation is pursued today.
--- NOTE | 2022-11-17 08:28 | PM.PREOP ---
Pre-operative Note Interval Note History & Physical reviewed/Exam performed by Physician: Yes Changes to H&P: No ASA Class (for procedural sedation): II
--- NOTE | 2022-11-17 08:49 | PM.OP.EGD ---
Operative Date/Time/Diagnoses Date of procedure: 11/17/22 Time of procedure: 08:49 Pre-op diagnosis: Dysphagia Post-op diagnosis: same Procedure & Clinicians Study performed: EGD with biopsies and Savary wire guided dilatation. Same procedure as scheduled: Yes Indications: Dysphagia Surgeon: Av Knight Procedure Notes SCOAP/Timeout: Done Procedure in detail: After the risks and benefits were explained, written and verbal informed consent was obtained. The patient was brought into the procedure room and placed into the left lateral decubitus position. Please see anesthesia notes for sedation details. The scope was introduced into the mouth through the bite block and advanced under direct visualization to the 2nd portion of the duodenum. The scope was slowly withdrawn carefully examining the mucosa for any defects or lesions. Retroflexed views were accomplished in the stomach. The stomach was decompressed, the scope was then removed from the patient who tolerated the procedure well. Sedation minutes: 15 Complications: none Impression: 1. Duodenum: No mucosal anomalies identified from the bulb through to the 2nd portion. 2. Stomach: No gastric outlet obstruction. Mild gastropathy was noted characterized by erythema and some edema in the antrum. This area was targeted for biopsy to exclude H pylori or other. No ulcers no mass lesions. There was a small polyp from the gastric body addressed with cold forceps. Additionally in the stomach were scattered erythematous and subtly eroded areas. A 3rd biopsy specimen was obtained from these areas for histopathologic review. Otherwise retroflexed views of the LES were unremarkable. 3. Esophagus: The squamocolumnar junction correlated with the top of the gastric folds. GEJ was at 38 cm from the incisors. No strictures no esophagitis no mass lesions. No rings. It was relatively easy to advance through the upper esophageal sphincter. I did not detect a cricopharyngeal bar. I however did pursue empiric Savary wire guided dilatation with a 54 [place] dilator through the esophagus. Second-look endoscopy was accomplished and there was no obvious rent in the mucosa anywhere. During the 2nd look endoscopy I elected to take mid esophageal biopsies to exclude eosinophilic infiltration. Endoscopic diagnosis 1. Erosive gastropathy 2. Small gastric polyp 3. No endoscopic features to explain dysphagia-status post empiric dilatation and biopsies. Post-procedure Plan for aftercare: 1. Await histopathology 2. Follow up GI clinic 2 gauge clinical response. 3. Continue to follow up in speech pathology clinic Disposition: PACU
[2022-11-17 08:54] VITALS: BP 105/87; PULSE 69; RESP 19; TEMP 36.1; O2SAT 95
[2022-11-17 08:58] VITALS: BP 143/72; PULSE 63; RESP 20; O2SAT 96
[2022-11-17 09:01] VITALS: BP 127/65; PULSE 57; RESP 18; O2SAT 96
[2022-11-17 09:25] VITALS: BP 117/82; PULSE 54; RESP 14; TEMP 36.3; O2SAT 97
== END 2022-11-17 09:32 | disposition home or self-care (01) ==
PROVIDERS: Family Provider Internal Medicine; PCP Internal Medicine; Referring Provider Internal Medicine Gastroenterology; Visit Provider Internal Medicine Gastroenterology
PROC: 0DJ08ZZ Inspection of Upper Intestinal Tract, Via Natural or Artificial Opening Endoscopic (ICD-10-PCS; CPT 43235; principal; 2022-11-17 08:30)
DX: R13.10 Dysphagia, unspecified (principal); K31.89 Other diseases of stomach and duodenum; K31.7 Polyp of stomach and duodenum
CPT/HCPCS: 43248; 43239; J2704

== ENCOUNTER → 2022-12-29 09:30 | Outpatient (CLI) | payer OTHER, SELFPAY ==
--- NOTE | 2022-12-29 | DI.US.S_ITS ---
PROCEDURE: US THYROID INDICATIONS: GLOBUS HYSTERICUS TECHNIQUE: Real-time scanning was performed of the thyroid gland, with image documentation. COMPARISON: None. FINDINGS: Right: Thyroid lobe measures 3.8 x 1.4 x 1.3 cm, and is heterogeneous in echotexture. Left: Thyroid lobe measures 2.9 x 0.9 x 1.2 cm, and is heterogeneous in echotexture. Isthmus: 4 mm thick. Nodule number: 1 Location: Mid to lower pole left thyroid lobe. Size: 1.1 x 0.7 x 1.0 cm. Composition: Solid Echogenicity: Hypoechoic Shape: Wider than tall. Margins: Smooth Echogenic foci: None Total points: 4 ACR TI-RADS category: Moderately suspicious. Nodule number: 2 Location: Medial upper pole right thyroid lobe adjacent to isthmus Size: 0.9 x 0.5 x 0.9 cm. Composition: Solid Echogenicity: Isoechoic to hypoechoic Shape: Wider than tall Margins: Smooth Echogenic foci: Non Total points: 4 ACR TI-RADS category: Moderately suspicious. Nodule number: 3 Location: Midpole right thyroid lobe. Size: 0.9 x 0.6 x 0.8 cm. Composition: Solid Echogenicity: Isoechoic to hypoechoic Shape: Wider than tall Margins: Smooth Echogenic foci: Non Total points: 4 ACR TI-RADS category: Moderately suspicious IMPRESSION: Heterogeneous thyroid parenchymal echotexture with 3 solid-appearing thyroid nodules as described above. Ultrasound follow-up is recommended. ACR TI-RADS definitions and recommendations: TI-RADS 1 (benign): 0 points. FNA not needed. TI-RADS 2 (not suspicious): 2 points. FNA not needed. TI-RADS 3 (mildly suspicious): 3 points. * FNA if 2.5 cm or larger, follow up if 1.5 cm or larger (at 1, 3, and 5 years). TI-RADS 4 (moderately suspicious): 4-6 points. * FNA if 1.5 cm or larger, follow up if 1 cm or larger (at 1, 2, 3, and 5 years). TI-RADS 5 (highly suspicious): 7 points or more. * FNA if 1 cm or larger, follow up if 0.5 cm or larger (every year for 5 years). Dictated by: Ken Sahu M.D. on 12/29/2022 at 10:39 Approved by: Ken Sahu M.D. on 12/29/2022 at 10:42
== END ==
PROVIDERS: Family Provider Internal Medicine; PCP Internal Medicine; Referring Provider Internal Medicine; Visit Provider Internal Medicine
DX: E04.2 Nontoxic multinodular goiter (principal); F45.8 Other somatoform disorders
CPT/HCPCS: 76536

== ENCOUNTER → 2023-09-20 10:59 | Outpatient (CLI) | payer OTHER, SELFPAY ==
--- NOTE | 2023-09-20 11:04 | DI.MRI.S_ITS ---
PROCEDURE: MR LOWER LEG RT WO CON INDICATIONS: Muscle weakness (generalized) TECHNIQUE: Noncontrast coronal and sagittal T1 spin echo and STIR; axial T1 spin echo and T2 fast spin echo with fat saturation through the right lower leg. COMPARISON: None. FINDINGS: Image quality: Excellent. Bones: The visualized bone marrow demonstrates normal signal on all sequences. The overlying cortex appears intact. No fractures lines or intra-osseous lesions. Soft tissues: There is edema and focal fluid signal intensity within the lateral aspect of the distal soleus muscle with irregularity of the central tendinous band, suspicious for partial tearing/grade 2 strain. Fluid is seen deep to the medial head of the gastrocnemius muscle. The plantaris tendon is intact. There is mild soft tissue edema at the distal gastrocnemius myotendinous junction and in the surrounding subcutaneous tissues that could also represent a low-grade strain. The visualized musculature is otherwise normal and signal intensity. There is a small medial popliteal cyst. IMPRESSION: 1. Suspected partial tearing/grade 2 strain of the distal soleus muscle laterally with involvement of the adjacent central tendinous band. 2. Mild grade 1 strain of the distal gastrocnemius muscle near the myotendinous junction with a small amount of fluid deep to the medial head of the gastrocnemius muscle. Approved by: Asher Solares M.D. on 09/21/2023 at 14:08
== END ==
PROVIDERS: Family Provider Internal Medicine; PCP Internal Medicine; Referring Provider Internal Medicine; Visit Provider Internal Medicine
DX: S86.811A Strain of other muscle(s) and tendon(s) at lower leg level, right leg, initial encounter (principal); M62.81 Muscle weakness (generalized)
CPT/HCPCS: 73718

== ENCOUNTER → 2023-12-22 09:01 | Outpatient (CLI) | payer OTHER, SELFPAY ==
--- NOTE | 2023-12-22 | DI.US.S_ITS ---
PROCEDURE: US THYROID INDICATIONS: multinodular goiter TECHNIQUE: Real-time scanning was performed of the thyroid gland, with image documentation. COMPARISON: [facility], [place], US THYROID, 12/29/2022, 9:39. FINDINGS: Thyroid: Right lobe measures 4.2 x 1.6 x 1.5 cm. Left lobe measures 2.9 x 0.8 x 1.3 cm. Isthmus is 0.6 cm thick. Echotexture is homogeneous. Nodule number: 1 Location: Superior right/isthmus Size: 1.4 x 0.5 x 0.9 cm compared to re-measurement of 1.3 x 0.5 x 0.9 cm. Composition: Solid Echogenicity: Hypoechoic Shape: wider than tall. Margins: Smooth Echogenic foci: None Total points: 4 ACR TI-RADS category: 4 Nodule number: 2 Location: Left inferior Size: 1.0 x 0.6 x 1.0 cm compared to 1.1 x 0.7 x 1.0 cm. Composition: Solid Echogenicity: Hypoechoic Shape: wider than tall. Margins: Smooth Echogenic foci: None Total points: 4 ACR TI-RADS category: 4 IMPRESSION: Stable interval exam. Recommend continued interval follow-up. ACR TI-RADS definitions and recommendations: TI-RADS 1 (benign): 0 points. FNA not needed. TI-RADS 2 (not suspicious): 2 points. FNA not needed. TI-RADS 3 (mildly suspicious): 3 points. * FNA if 2.5 cm or larger, follow up if 1.5 cm or larger (at 1, 3, and 5 years). TI-RADS 4 (moderately suspicious): 4-6 points. * FNA if 1.5 cm or larger, follow up if 1 cm or larger (at 1, 2, 3, and 5 years). TI-RADS 5 (highly suspicious): 7 points or more. * FNA if 1 cm or larger, follow up if 0.5 cm or larger (every year for 5 years). Dictated by: Melonie Edwards M.D. on 12/22/2023 at 15:42 Approved by: Melonie Edwards M.D. on 12/22/2023 at 15:49
--- NOTE | 2023-12-22 | DI.MRI.S_ITS ---
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 In cases with scoliosis, additional coronal T2 fast spin echo may be performed. COMPARISON: None. FINDINGS: Image quality: Excellent. Alignment and Curvature: Mild retrolisthesis of L3 on L4. Mild anterolisthesis of L4 on L5 and L5 on S1. Bone Marrow: Marrow is of normal overall signal. No acute vertebral body compression fractures. Spinal Cord: Conus medullaris terminates at the L1-L2 level. Visualized cord demonstrates normal signal and size. Paraspinous Soft Tissues: No paravertebral masses. T12-L1: Mild disc bulge. Mild facet arthropathy. No central canal or neural foraminal stenosis. L1-L2: Mild disc desiccation and posterior disc bulge. Facet arthropathy and thickening of ligamentum flavum. No central canal or neural foraminal stenosis. L2-L3: Disc desiccation and diffuse disc bulge. Facet arthropathy. No significant central canal or neural foraminal stenosis. L3-L4: Disc desiccation height loss. Mild diffuse disc bulge. Mild central canal stenosis. Facet arthropathy and thickening of ligamentum flavum. Epidural lipomatosis. Mild right and moderate left neural foraminal stenosis. L4-L5: Disc desiccation height loss. Facet arthropathy and thickening of ligamentum flavum. Mild central canal stenosis. Mild bilateral neural foraminal stenosis. L5-S1: Disc desiccation. Facet arthropathy. No central canal or neural foraminal stenosis. IMPRESSION: 1. Multilevel degenerative changes of the lumbar spine as described above. 2. There is mild central canal stenosis at L3-L4 and L4-5. 3. Moderate left neural foraminal stenosis at L3-L4. Mild neural foraminal stenosis at other levels, as described above. Dictated by: Juan Diego Hayward M.D. on 12/22/2023 at 14:09 Approved by: Juan Diego Hayward M.D. on 12/22/2023 at 14:12
--- NOTE | 2023-12-22 13:46 | DI.RAD.S_ITS ---
PROCEDURE: XR CERVICAL SPINE 4V OR 5V INDICATIONS: Degenerative joint disease, neck pain after fall 09/2023 TECHNIQUE: 5 views of the cervical spine were acquired. COMPARISON: None. FINDINGS: Bones: No acute fractures or dislocations to the T1 level. No suspicious bony lesions. Mild grade 1 degenerative spondylolisthesis at C4-5 and C5-6 measuring 1-2 mm. Multilevel joint space narrowing and degenerative endplate changes are seen. There is multilevel uncovertebral joint and facet hypertrophy. There is reduced range of motion between flexion and extension, without abnormal subluxation. Soft tissues: Prevertebral soft tissues are normal in thickness. IMPRESSION: 1. Moderate multilevel spondylosis and degenerative spondylolisthesis. 2. Reduced range of motion on flexion/extension without abnormal subluxation. Approved by: Asher Solares M.D. on 12/22/2023 at 16:46
== END ==
PROVIDERS: Family Provider Internal Medicine; PCP Internal Medicine; Referring Provider Internal Medicine; Visit Provider Internal Medicine
DX: M47.812 Spondylosis without myelopathy or radiculopathy, cervical region (principal); M43.12 Spondylolisthesis, cervical region; M48.062 Spinal stenosis, lumbar region with neurogenic claudication; M47.816 Spondylosis without myelopathy or radiculopathy, lumbar region; M47.817 Spondylosis without myelopathy or radiculopathy, lumbosacral region; E04.2 Nontoxic multinodular goiter
CPT/HCPCS: 72050; 72148; 76536

== ENCOUNTER → 2024-02-08 09:43 | Outpatient (CLI) | payer OTHER, SELFPAY ==
--- NOTE | 2024-02-08 | DI.RAD.S_ITS ---
PROCEDURE: XR DEXA AXIAL SKELETON INDICATIONS: Other specified disorders of bone density and structure, uns COMPARISON: None. FINDINGS: Lumbar Spine: Bone mineral density 1.014 g/cm2, T score -0.3, normal. Left Hip: Bone mineral density 0.874 g/cm2, T score -0.6, normal. Left Femoral Neck: Bone mineral density 0.636 g/cm2, T score -1.9, osteopenia. Right Hip: Bone mineral density 0.890 g/cm2, T score -0.4, normal. Right Femoral Neck: Bone mineral density 0.675 g/cm2, T score -1.6, osteopenia. Fracture Risk Calculation (when applicable): 10-year fracture risk of a major osteoporotic fracture 12% and of a hip fracture 2.6%. (T score greater or equal to -1.0 to: NORMAL) (T score from -1.1 to -2.4: OSTEOPENIA) (T score less than or equal to -2.5: OSTEOPOROSIS) IMPRESSION: Osteopenia elevates the patient's 10 year fracture risk as described. Follow-up guidelines as follows: Osteoporosis: Consider a repeat DEXA and Vertebral Fracture Assessment (VFA) exam in 2 years or sooner if medically necessary, to reassess this patient's status. Osteopenia: Consider a repeat DEXA in 2-3 years to reassess this patient's status, or if there is a new clinical indication. Normal: Consider a repeat DEXA in 5 years or sooner, or if there is a new clinical indication. All treatment decisions require clinical judgment and consideration of individual patient factors, including patient preferences, comorbidities, previous drug use, risk factors not captured in the FRAX model (e.g., frailty, falls, vitamin D deficiency, increased bone turnover, interval significant decline in bone density ) and possible under- or over-estimation of fracture risk by FRAX. In addition, the NOF Guide recommends that FDA-approved medical therapies be considered in postmenopausal women and men age >= 50 years with a: * Hip or vertebral (clinical or morphometric) fracture * T-score of <=-2.5 at the spine or hip * Ten-year fracture probability by FRAX of >= 3% for hip fracture or >=20% for major osteoporotic fracture. People with diagnosed cases of osteoporosis or at high risk for fracture should have regular bone mineral density tests. For patients eligible for Medicare, routine testing is allowed once every 2 years. The testing frequency can be increased to one year for patients who have rapidly progressing disease, those who are receiving or discontinuing medical therapy to restore bone mass, or have additional risk factors. Dictated by: Sandra Rangel M.D. on 02/08/2024 at 15:26 Approved by: Sandra Rangel M.D. on 02/08/2024 at 15:28
== END ==
PROVIDERS: Family Provider Internal Medicine; PCP Internal Medicine; Referring Provider Internal Medicine; Visit Provider Internal Medicine
DX: M85.89 Other specified disorders of bone density and structure, multiple sites (principal)
CPT/HCPCS: 77080

== ENCOUNTER → 2024-03-08 16:16 | Outpatient (CLI) | payer OTHER, SELFPAY ==
--- NOTE | 2024-03-08 16:18 | DI.RAD.S_ITS ---
PROCEDURE: XR LUMBAR SPINE 2-3V INDICATIONS: Spondylolisthesis, lumbar region TECHNIQUE: 3 views of the lumbar spine were acquired. COMPARISON: None. FINDINGS: Bones: No acute fracture. No significant interval change in grade 1 anterolisthesis of L4 on L5 with flexion and extension. No significant interval change in grade 1 retrolisthesis of L3 on L4 with flexion and extension. No significant interval change in minimal retrolisthesis of L2 on L3 with flexion and extension. No suspicious bony lesions. Soft tissues: Overlying bowel gas pattern is normal. No suspicious soft tissue calcifications. Vascular calcifications of the abdominal aorta. IMPRESSION: No significant interval change in the degree of spondylolisthesis with flexion and extension as described above. Dictated by: Delmar Valdez M.D. on 03/09/2024 at 11:39 Approved by: Delmar Valdez M.D. on 03/09/2024 at 11:44
== END ==
PROVIDERS: Family Provider Internal Medicine; PCP Internal Medicine; Referring Provider Orthopaedic Surgery Orthopaedic Surgery of the Spine; Visit Provider Orthopaedic Surgery Orthopaedic Surgery of the Spine
DX: M43.16 Spondylolisthesis, lumbar region (principal)
CPT/HCPCS: 72100

== ENCOUNTER → 2024-03-23 09:46 | Outpatient (CLI) | payer OTHER, SELFPAY ==
--- NOTE | 2024-03-23 09:48 | DI.CT.S_ITS ---
PROCEDURE: CT LUMBAR SPINE WO CON INDICATIONS: SPONDYLOLISTHESIS TECHNIQUE: Noncontrast 3 mm thick sections acquired from the T12 level to the sacrum. Sagittal and coronal reformats were constructed. For radiation dose reduction, the following was used: automated exposure control. COMPARISON: [facility], MR, MR LUMBAR SPINE WO CON, 12/22/2023, 9:20. FINDINGS: Image quality: Diagnostic. Bones: There is stable bony alignment with minimal retrolisthesis of L2 on L3 and L3 on L4. There is also minimal grade 1 anterolisthesis of L4 on L5 and L5 on S1. No acute vertebral body compression fractures. No suspicious lytic or blastic bony lesions. No pars defects. T12-L1: Mild bilateral facet arthropathy. Mild degenerative endplate changes. No significant neuroforaminal or spinal canal stenosis. L1-L2: No significant neuroforaminal or spinal canal stenosis. L2-L3: Mild bilateral facet arthropathy. Degenerative endplate changes and endplate osteophytes. Symmetric disc bulge. Mild left and mild-moderate right bilateral neuroforaminal stenosis with minimal spinal canal stenosis. L3-L4: Moderate bilateral facet arthropathy. Moderate degenerative endplate changes. Mild disc space loss. Prominent symmetric disc bulge. Findings result in moderate spinal canal stenosis and moderate-severe bilateral neuroforaminal stenosis. L4-L5: Severe bilateral facet arthropathy. Degenerative endplate changes and mild disc space loss. Ligamentum flavum hypertrophy. There is moderate spinal canal stenosis. There is moderate right and mild-moderate left bilateral neuroforaminal stenosis. L5-S1: Moderate bilateral facet arthropathy. Disc space loss and degenerative endplate changes. Symmetric disc bulge. Mild spinal canal stenosis. Mild-moderate left and mild right bilateral neuroforaminal stenosis. Soft tissues: No retroperitoneal masses or hematomas. Atherosclerotic calcifications of the abdominal aorta with infrarenal abdominal aortic aneurysm measuring 3.7 cm in diameter. Peripelvic renal cysts bilaterally. These are noted on comparison MRI. Visualized portions of the liver, gallbladder, pancreas, and spleen appear unremarkable. Colonic diverticulosis without acute diverticulitis. Normal appendix. No suspicious adenopathy in the retroperitoneum or pelvis. No evidence for small bowel obstruction or associated inflammatory changes. Moderate-sized hiatal hernia. Heart size is mildly enlarged. IMPRESSION: Lumbar spine without acute osseous abnormalities or traumatic malalignment. Moderate-severe multilevel, multifactorial lumbar spondylosis as detailed above by vertebral body level. Accounting for differences in imaging modality, findings are not significantly changed compared to the most recent MRI. Other chronic/nonacute findings as above. Of note, there is a 3.7 cm infrarenal abdominal aortic aneurysm. Dictated by: Prakash Cano M.D. on 03/23/2024 at 21:17 Approved by: Prakash Cano M.D. on 03/23/2024 at 21:46
== END ==
PROVIDERS: Family Provider Internal Medicine; PCP Internal Medicine; Referring Provider Orthopaedic Surgery Orthopaedic Surgery of the Spine; Visit Provider Orthopaedic Surgery Orthopaedic Surgery of the Spine
DX: M43.16 Spondylolisthesis, lumbar region (principal); M47.816 Spondylosis without myelopathy or radiculopathy, lumbar region; M47.817 Spondylosis without myelopathy or radiculopathy, lumbosacral region; M48.061 Spinal stenosis, lumbar region without neurogenic claudication; M48.07 Spinal stenosis, lumbosacral region; N28.1 Cyst of kidney, acquired; I70.0 Atherosclerosis of aorta; I71.43 Infrarenal abdominal aortic aneurysm, without rupture; K57.30 Diverticulosis of large intestine without perforation or abscess without bleeding; K44.9 Diaphragmatic hernia without obstruction or gangrene
CPT/HCPCS: 72131

== ENCOUNTER → 2024-03-30 14:26 | Outpatient (CLI) | payer OTHER, SELFPAY ==
--- NOTE | 2024-03-30 14:45 | EKG_ITS ---
[place] [id number] [place] [id number] Test Date: 2024-03-30 Pat Name: Alicja Blanchard Department: [facility] Room: Gender: Female [facility] Director: ALESSANDRO : 1945 Requested By: Order Number: [id number] Reading MD: John Landers MD Measurements Intervals [place] Rate: 57 P: 50 OK: 166 QRS: 32 QRSD: 90 T: 51 QT: 416 QTc: 404 Interpretive Statements Sinus bradycardia with occasional premature ventricular complexes Electronically Signed On 03-31-2024 7:36:16 PDT by John Landers MD
== END ==
LOC: RESP 14:26
PROVIDERS: Family Provider Internal Medicine; PCP Internal Medicine; Referring Provider Orthopaedic Surgery Orthopaedic Surgery of the Spine; Visit Provider Orthopaedic Surgery Orthopaedic Surgery of the Spine
DX: Z01.818 Encounter for other preprocedural examination (principal)
CPT/HCPCS: 93005; 93010

== ENCOUNTER 2024-04-04 10:18 | Inpatient (IN) | payer OTHER, SELFPAY ==
[2024-04-01 10:57] VITALS: BMI 39.1
[2024-04-04] VITALS (17 sets, daily range): BP systolic 130–182; BP diastolic 35–91; PULSE 59–90; RESP 11–20; TEMP 35.8–36.8; O2SAT 88–94; BMI 38.7
--- NOTE | 2024-04-04 | DI.RAD.S_ITS ---
PROCEDURE: XR LUMBAR SPINE 2-3V INDICATIONS: TLIF L4-5 TECHNIQUE: 2 views of the lumbar spine were acquired. COMPARISON: [facility], , XR LUMBAR SPINE 2-3V, 03/08/2024, 16:30. FINDINGS: Two intraoperative fluoroscopic spot images of the lower lumbar spine submitted for interpretation. Postsurgical changes from lumbar fusion with bilateral pedicle screws and interbody fusion rods including disc spacer involving L4-5. Anatomic alignment of L4-5. IMPRESSION: Intraoperative fluoroscopy as described. Dictated by: Mayo Hernández M.D. on 04/05/2024 at 8:32 Approved by: Mayo Hernández M.D. on 04/05/2024 at 8:33
[2024-04-04] MEDS: LACTATED RINGERS 1,000 ML 42 ML IV ×2 (11:54→14:02)
[2024-04-04] MEDS: ACETAMINOPHEN 325 MG TABLET 975 MG PO (12:13)
[2024-04-04] MEDS: PREGABALIN 75 MG CAPSULE PO (12:13)
[2024-04-04] MEDS: FAMOTIDINE 20 MG/2 ML VIAL IV (12:13)
--- NOTE | 2024-04-04 12:49 | PM.PREOP ---
Pre-operative Note Interval Note History & Physical reviewed/Exam performed by Physician: Yes Changes to H&P: No
--- NOTE | 2024-04-04 13:14 | PM.OP.1 ---
Operative Date/Time/Diagnoses Date of procedure: 04/04/24 Time of procedure: 13:14 Pre-op diagnosis: 1. L4-5 anterolisthesis 2. 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 L4-5 Postero-lateral and posterior interbody fusion 2. L4-5 interbody cage placement. 3. L4-5 decompressive laminectomy with bilateral facetecomies 4. L4-5 Posterior non-segmental instrumentation 5. [place] of bone marrow from iliac crest 6. Utilization of microsurgical technique and operating microscope 7. Utilization of robotic assisted navigation Same procedure as scheduled: Yes Indications: Patient has been having chronic back pain and worsening lumbar radiculopathy. Patient was found to have L4-5 anterolisthesis as well as foraminal stenosis correlating with her symptoms. Patient failed multiple conservative management with worsening pain weakness and numbness in her lower extremity. Patient has been having difficulty performing activity of daily living. After discussing risks benefits of treatment options, patient elected proceed with surgery. Surgeon: Amber Dow Rn Occupational: Annita Moura Click Yes if Unassisted: No Anesthesia Type: General Operative Notes Closure Type: primary Specimen(s): none sent Prosthetic devices, grafts, tissues, transplants, or devices: Globus CREO MIS screws, Rise cage Estimated Blood Loss (mL): 75 Blood products transfused: none Procedure in detail: Patient was seen in the preoperative area. Risks and benefits of the surgery was discussed with the patient. Informed consent was obtained from the patient and placed in the chart. Surgical site was marked. Patient was taken to the operative room. General anesthesia was administered. Prophylactic antibiotic was given to the patient less than 30 min before the incision was made. Patient was placed into a prone position on the Enzo table. Patient's back was then prepped and draped in the sterile fashion. Time-out was performed at this time. After patient was prepped and draped, patient's PSIS was palpated and marked bilaterally. Small 1 cm incision was made over the PSIS for placement of the reference probes. Two trocar was placed into the PSIS 1 on each side. The reference probe was attached to the trocar of the reference apparatus. At this time the C-arm imaging was used to confirm AP and lateral of L4-5 vertebrae and merged the C-arm imaging using the [email or web address] robotic navigation system with the CT of the lumbar spine. After successful merging was completed and confirmed, skin marker was used to christine out the skin incision using the [email or web address] robotic arm. Bilateral incision was made at this time. Pre templated trajectory was used and guided using the [email or web address] robotic navigation system for bilateral L4-5 pedicle screw placement. This was done by using the robotic arm to guide the high-speed bur to make a cortical entry point. Next a drill was placed also using the robotic arm and guided using the navigation system drilling partially through bilateral L4 and L5 pedicles. Next L4-5 pedicle screws it was pre templated and measured was placed onto the power stock car driver and inserted into the pedicles bilaterally. After all 4 screws were placed C-arm imaging was taken of both AP and lateral to confirm the placement. Excellent placement of the screws were confirmed and a matched precisely with the pre planned screw placement using the navigation system. MARs retractor was inserted using [employer] guidence. Globus MARS retractors was placed inside the incision and docked onto the L4 lamina. Using microsurgical technique and operating microscope, a L4 laminectomy and L4-5 facetectomy was performed using a Kerrison rongeur. Patient was found have severe lateral recess and neural foramen stenosis which was fully decompressed after the laminectomy facetectomy. More than 75% of the facets were removed during the process of decompression rendering L4-5 level grossly unstable and required a fusion procedure at the same time. The laminectomy and facetectomy was performed in order to decompress patient's cauda equina as well as the nerve roots exiting at the L4-5 level. The disc space at L4-5 was identified, and a total diskectomy was performed at L4-5 level. The endplates were decorticated using a rasp and shaver. The total diskectomy and decortication was performed at L4-5 level in order to to accomplish a L4-5 fusion. The local bone from the laminectomy and facetectomy was saved for local bone grafting. After the total diskectomy and decortication was completed, Viacel bone graft material was combined with local bone that was harvested earlier. At this time, a separate skin is incision was made over the iliac crest. A Jamshidi needle was inserted into the iliac crest through a separate skin incision. 5 cc of bone marrow aspiration was obtained through the separate skin incision using a Jamshidi needle from the iliac crest. The bone marrow aspiration was combined with local bone and the Viacel bone grafting material. The bone grafting material was placed into the L4-5 interbody space along with a expandable cage. The cage was expanded to its maximum height using the torque limiting screwdriver. The disc preparation as well as the cage insertion were also performed under navigation guidance. After the cage was placed, AP and lateral C-arm imaging was taken to confirm placement of the cage and excellent position was confirmed. Globus MARS retractor was inserted and docked onto the L4-5 posterolateral gutter on the right side. Using the power drill, posterior-lateral decortication was performed at L4-5 level until bleeding cortical bone was identified. The remaining bone grafting material was placed into the L4-5 posterior lateral gutter he order to accomplish posterolateral fusion at the L4-5 level. At this time the tulips were attached to the L4-5 pedicle screw shanks. After measuring the length of the rods, they were inserted into the tulips of the pedicle screws and locked in place using locking caps and torque limiting screwdriver bilaterally. Total 4 caps and 2 titanium rods was used in order to complete the posterior instrumentation construct. After all the hardware was placed, and confirmed with AP and lateral C-arm imaging, the wound was then irrigated with sterile normal saline and packed with Ray-Tonia gauze for 3 min to accomplish hemostasis. After the gauze was removed the deep fascia was closed with #1 Vicryl suture. The subcutaneous layer was closed with 2-0 Vicryl. The skin was closed with skin sunil. Patient tolerated the procedure well. There were no complications. The Operation could not have been safely performed without compromising the technical result or length of the procedure, without the assistance of a skilled surgical instruments inspector. The surgical instruments inspector was medically necessary for proper positioning, retraction and manipulation of instruments, proper exposure, surgical preparation, and manipulation of tissue. Neuro monitoring system was used to monitor patient's neurologic status throughout entire procedure. There was no disturbance of the neural monitoring signals throughout the case. The Operation could not have been safely performed without compromising the technical result or length of the procedure, without the assistance of a skilled surgical instruments inspector. The surgical instruments inspector was medically necessary for proper positioning, retraction and manipulation of instruments, proper exposure, surgical preparation, and manipulation of tissue. Complications: none Post-operative Condition: stable Disposition: PACU Plan for aftercare: Admit to inpatient hospital
[2024-04-04] MEDS: CEFAZOLIN 2 GM/100 ML PREMIX 100 ML IV ×2 (13:15→20:33)
--- NOTE | 2024-04-04 13:21 | SUR.OPER ---
Prone on spine table, head in foam head support, padded chest and pelvic supports, gel pad at knees, lower legs supported by pillows; nipples, genitalia and toes free of pressure, arms secured on foam padded arm boards at <90 degrees abduction. Tape over blanket at thigh secured to table.
[2024-04-04] MEDS: BUPIVACAINE LIPOSOME 266 MG/20 ML VIAL INJ (13:33)
[2024-04-04] MEDS: BUPIVACAINE 0.25% (PF) 60 ML, EPINEPHrine 0.15 MG INJ (13:34)
[2024-04-04] MEDS: OXYCODONE IR 5 MG TABLET PO (15:55)
[2024-04-04] MEDS: ALBUTEROL 2.5 MG/3 ML NEB (ADULT) INH (16:07)
[2024-04-04] MEDS: hydrOXYzine 50 MG/ML INJ 25 MG IM (16:10)
[2024-04-04] MEDS: METOPROLOL TARTRATE 5 MG/5 ML INJ IV (16:36)
[2024-04-04] MEDS: LACTATED RINGERS 1,000 ML 125 ML IV ×2 (18:22→20:41)
[2024-04-04] MEDS: DOCUSATE 100 MG CAPSULE PO (20:33)
[2024-04-04] MEDS: SENNOSIDES 8.6 MG TABLET 17.2 MG PO (20:33)
[2024-04-04] MEDS: ACETAMINOPHEN 325 MG TABLET 650 MG PO (20:34)
[2024-04-05] MEDS: LACTATED RINGERS 1,000 ML 125 ML IV (05:19)
[2024-04-05] MEDS: CEFAZOLIN 2 GM/100 ML PREMIX 100 ML IV (05:20)
--- NOTE | 2024-04-05 07:36 | PM.PNPO.1 ---
Subjective Subjective Date Patient Seen: 04/05/24 Time Patient Seen: 07:36 Interval history: Patient reports mild back pain. No fever or chills. No shortness of breath or chest pain. Exam Vital Signs (past 8 hours): Fraction of Inspired Oxygen 32 SaO2/FiO2 Ratio 290 Oxygen Delivery Method Nasal Cannula Oxygen Flow Rate 3 Narrative Exam Narrative: 70-year-old female resting comfortably in bed in no apparent distress. Motor functions intact bilateral lower extremities. Const General: cooperative and comfortable Nutritional Appearance: average body habitus and obese (BMI 38.8) Orientation: alert Resp Effort & Inspection: normal respiratory effort and able to speak in complete sentences [facility] Medical History (Updated 04/01/24 @ 11:18 by Arely Yu RN) History of COVID-19 Thyroid nodule Easy bruisability Pre-diabetes Acid reflux HLD (hyperlipidemia) Seasonal allergies COPD (chronic obstructive pulmonary disease) Surgical History (Updated 04/01/24 @ 11:11 by Arley Yu RN) History of dilation and curettage Hx of bilateral cataract extraction Hx of hernia repair Social History household members: spouse Smoking Status: Former smoker alcohol intake: never Assessment & Plan Post-op Postoperative Procedures: Procedures Operation Date: 04/04/24 12:45 Actual Procedure Side Surgeon p L4 - 5 TLIF Not Applicable Amber Dow MD Postoperative day: 1 Postoperative status: doing well Postoperative plan: routine post-op care Postoperative plan narrative: Mobilize with physical therapy, limit bending, twisting, lifting Multimodal pain management Disposition, likely home today or tomorrow Quality VTE Deep Vein Thrombosis/Pulmonary Embolism Present on Admission: No
[2024-04-05 08:00] VITALS: BP 132/67; PULSE 67; RESP 16; TEMP 36.3; O2SAT 92
[2024-04-05] MEDS: IPRATROPIUM 0.5 MG/2.5 ML NEB INH (09:05)
[2024-04-05 09:08] VITALS: O2SAT 95
--- NOTE | 2024-04-05 09:25 | PT.IIE ---
Current Diagnoses Spondylolisthesis, lumbar region (04/04/24) Spinal stenosis, lumbar region without neurogenic claudication (04/04/24) Surgery Performed Operation Date: 04/04/24 12:45 Actual Procedures p L4 - 5 TLIF(Not Applicable) - Amber Dow MD Surgical History (Last Updated 04/01/24 @ 11:11 by Arely Yu, RN) History of dilation and curettage Hx of bilateral cataract extraction Hx of hernia repair Medical History (Last Updated 04/01/24 @ 11:18 by Arely Yu RN) Acid reflux COPD (chronic obstructive pulmonary disease) Easy bruisability History of COVID-19 HLD (hyperlipidemia) Pre-diabetes Seasonal allergies Thyroid nodule Physical Therapy Inpatient Evaluation/Re-Eval M1 PT/OT-IP Prior Functional Status Start: 04/05/24 13:18 Freq: NEEDED Status: Discharge Protocol: Document 04/05/24 09:25 AB (Rec: 04/05/24 13:38 AB [id number]) Medical Review Prior Functional Status Medical History Reviewed Yes Communication able to make needs known Mobility and Gait pt stated that she was independent with all mobilities and ambulation without AD Social History Household Members spouse Living Arrangements House Number of Floors (Floors) Two Floors Number of Stairs To Enter/Railing? pt stays on main level of the house 4 steps with left rail to enter the house Home Environment High Toilet,Walk in Shower, Built-In Shower Seat Home Equipment Four Wheel Walker,Hand Held Shower,Long Handled Shoe Horn, Complaint Supervisor,Grab Bars In Shower Additional Social History Comment pt has a hurrycane and a recliner M2 PT-IP Current Condition Start: 04/05/24 13:18 Freq: NEEDED Status: Discharge Protocol: Document 04/05/24 09:25 AB (Rec: 04/05/24 13:38 AB [id number]) Physical Therapy Current Condition Current Condition Evaluation Date 04/05/24 Treatment Diagnosis s/p L4-5 TLIF; difficulty in walking Onset Date 04/04/24 M3 PT-IP Subjective Start: 04/05/24 13:18 Freq: NEEDED Status: Discharge Protocol: Document 04/05/24 09:25 AB (Rec: 04/05/24 13:38 AB [id number]) Subjective Physical Therapy Visit Type Type Initial Evaluation Visit Start Time 09:25 Visit Stop Time 10:45 Number of HEALTH EDUCATION TEACHER Visits 0 Physical Therapy Visit Comments Patient Comments agreeable to do PT Therapy Pain Assessment Pain When Pain Assessed At Rest Pain Present Pain Present Pain Reported Location back Intensity 3 Scale Used Numeric (0 - 10) Pain Management Techniques Apply Cold,Distraction, Modification of Treatment,Re- positioning,Timing of Activity with Medications M4 PT-IP Mobility and Gait Start: 04/05/24 13:18 Freq: NEEDED Status: Discharge Protocol: Document 04/05/24 09:25 AB (Rec: 04/05/24 13:38 AB [id number]) PT-Bed Mobility Assessment Rolling Type of Rolling Log Rolling Level of Assist Standby Assistance,Contact Guard Assistance Supine to Sit Supine to Sit Standby Assistance,Contact Guard Assistance Sit to Supine Sit to Supine Standby Assistance,Contact Guard Assistance PT-Transfer Assessment Sit to and From Stand Sit to and from Stand Contact Guard Assistance,1 Person Assistance,Use of Upper Extremities Equipment Transfer Assistive Device Gait Belt,Front Wheeled Walker ,4 Wheeled Walker Orthotic/Prosthetic Devices or Brace: No Transfers Transfer Destination Bed,Chair Transfer Technique ambulated Transfer Ability Level of Assist Contact Guard Assistance Comments Mobility Comments pt supine in bed and agreeable to do PT. spouse in room with pt. obtained PLOF and home set up from pt and spouse . spouse tends to talk for pt . post-op folder provided to pt and reviewed contents. educated on back precautions and log roll bed mobility. O2 sat at RA : 91-92%. cued for deep breathin%. pt stated that her doctor is aware of her O2 sat and that she has a pulse Ox and O2 is normally also at 90-91% at RA. pt completed supine to sit log roll CGA and max cuesfor techniques. pt impulsive and just immediately showed PT how she gets up from the bed at home; pt got into a prone position and stood up from the position. mod A for initialy standing. assisted pt to sit back on EOB. educated pt on safety and informed pt regarding doing log roll. pt agreed. completed log roll sit to supine CGA and cues. completed supine to sit CGA and max cues. completed sit to stand CGA and pt ambulated in room using FWW ~ 25 ft CGA. pt sat on the chair. O2 sat checked: 85-87%. cued for deep breathing and O2 sat increased to 96%. educated on on 4WW use and brakes. caregiver training conducted. educated spouse on how to use safety belt and how to assist pt. spouse was able to put safety belt on pt. assisted pt with sit to stand from chair CGA and pt ambulated in room using 4WW CGA. pt sat on EOB. completed log roll sit<>supine SBA with occasional cues. pt completed sit to stand from EOB CGA with spouse assisting and pt ambulated towards the stairs using 4WW CGA. cued for deep breathing. pt completed up/down steps holding on to L rail with B hands CGA to min A and spouse was able to assist . pt with LOB and L knee slight buckling with descent but spouse was able to assist. cued pt for safety and how to stabilize her knees. cued pt again with deep breathing. assisted pt back to her room. ambulated from w/c to chair using 4WW CGA. positioned pt on the chair. call light and table placed within reach. pt and spouse without further concerns. Gait Assessment Gait Gait Assistance Required: Contact Guard Assist Distance (Feet) 150 Able to Maintain Weight Bearing Status Yes During Gait Assistive Devices Assistive Device Gait Belt,Front Wheeled Walker ,4 Wheeled Walker Orthotic/Prosthetic Devices or Brace: No Gait Deviations General Gait Pattern Antalgic,Decreased Stride Length,Decreased Feet Clearance Factors Limiting Gait Function Factors Limiting Gait Function Decreased Activity Tolerance, Decreased Strength,Difficulty Following Directions,Limited Range of Motion,Pain,Poor Balance,Poor Safety Awareness, Respiratory Distress Stair Climbing Assessment Evaluation Level of Assist On Stairs Contact Guard Assistance, Minimal Assistance Devices Stair Climbing Assistive Devices Left Railing Technique/Endurance Stair Climbing Direction Ascend and Descend Stair Climbing Technique Step to Step Number of Steps Climbed 3 Query Text: Stair Climbing Set # Repetitions (reps) 1 PT-Balance Assessment Sitting Balance and Reactions Static Sitting Balance Ability Good Dynamic Sitting Balance Ability Good Standing Balance and Reactions Static Standing Balance Ability Fair Dynamic Standing Balance Ability Fair Device Used 4WW M5 PT-IP Objective Assessments Start: 04/05/24 13:18 Freq: NEEDED Status: Discharge Protocol: Document 04/05/24 09:25 AB (Rec: 04/05/24 13:38 AB [id number]) Orientation Orientation/Cognition Level of Alertness Alert Orientation Name,Place,Situation Language Function Ability No Deficits Noted Safety Awareness Decreased Safety Awareness Memory Description Short Term Impaired Gross Range of Motion Lower Extremity ROM Assessment Within Functional Limits Strength Lower Extremity Strength Assessment Left Impaired Hip 4-/5 Knee 3+/5 Coordination Assessment Gross Coordination Gross Coordination WNL Sensation Assessment Sensation Gross Sensation WNL Muscle Tone Muscle Tone WNL Yes M6 PT-IP Treatment Start: 04/05/24 13:18 Freq: NEEDED Status: Discharge Protocol: Document 04/05/24 09:25 AB (Rec: 04/05/24 13:38 AB [id number]) Physical Therapy Treatment Education Education Provided Precautions,Weight Bearing Status,Post-Op Packet,Safety M7 PT-IP Assessment and Plan Start: 04/05/24 13:18 Freq: NEEDED Status: Discharge Protocol: Document 04/05/24 09:25 AB (Rec: 04/05/24 13:38 AB [id number]) PT Summary Assessment and Plan Potential Rehabilitation Potential Fair Status of Condition at Evaluation Evolving Summary Impairments Pain,ROM,Strength,Balance, Coordination,Sensation,Tone, Cognition,Bed Mobility, Transfers,Gait,Activity Tolerance Assessment Summary pt is an 78 y/o F s/p L4-5 TLIF POD 1. pt requiring CGA to min A with mobility using a 4WW. caregiver training conducted and spouse was able to assist. pt plans to go home with spouse to assist. pt with decrease O2 sat with mobility at RA but increases to 96% with deep breathing. pt to f/u with PCP for her O2 sat. pt may go home when medically stable. Goals Bed Mobility Goal Independent Transfer Goal Independent,Four Wheeled Walker Gait Goal Independent,Four Wheel Walker Gait Distance 200 Other Goals up/down 4 steps L rail ascending mod I Days to Meet Goals 5 Frequency of Treatment Frequency Of Treatment Twice a Day Treatment Plan Physical Therapy Treatment Plan Bed Mobility Training,Transfer Training,Gait Training, Therapeutic Exercise,Balance Retraining,Post Op Education, Discharge Planning,Hot or Cold Pack,Neuromuscular Re-ed, Coordination Retraining,Manual Therapy Precautions Lumbar Precautions Log Roll,No Twisting,Limit Bending,Lifting Restriction of 10 lbs,Gait Belt above Incisional Area Recommendations To Nursing Amount of Assist Needed 1 Person Assist Discharge Recommendations PT Discharge Recommendations Home with Assistance Transportation Needs at Discharge Private Vehicle
[2024-04-05 09:28] VITALS: BP 132/67
[2024-04-05] MEDS: LOSARTAN 50 MG TABLET 100 MG PO (09:28)
[2024-04-05] MEDS: ACETAMINOPHEN 325 MG TABLET 650 MG PO (09:28)
[2024-04-05] MEDS: DOCUSATE 100 MG CAPSULE PO (09:28)
--- NOTE | 2024-04-05 10:29 | PM.DS.1 ---
History of Present Illness History of Present Illness Date Patient Seen: 04/05/24 Time Patient Seen: 10:29 Chief complaint: Lumbar TLIF Narrative: See progress note Discharge Providers Provider Date of admission: 04/04/24 10:18 Discharge Date: 04/05/24 Primary care physician: Toney Valle MD Consults: 04/04/24 17:24 Consult to Occupational Therapy Evaluate & Treat Comment: Physician Instructions: Evaluate and treat Consult to Physical Therapy Evaluate & Treat Comment: Physician Instructions: Evaluate and Treat Discharge provider: Femi Vickers PA-C Summary Hospital Course Discharge Diagnosis: 1. L4-5 anterolisthesis 2. 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 L4-5 Postero-lateral and posterior interbody fusion 2. L4-5 interbody cage placement. 3. L4-5 decompressive laminectomy with bilateral facetecomies 4. L4-5 Posterior non-segmental instrumentation 5. [place] of bone marrow from iliac crest 6. Utilization of microsurgical technique and operating microscope 7. Utilization of robotic assisted navigation Same procedure as scheduled: Yes Indications: Patient has been having chronic back pain and worsening lumbar radiculopathy. Patient was found to have L4-5 anterolisthesis as well as foraminal stenosis correlating with her symptoms. Patient failed multiple conservative management with worsening pain weakness and numbness in her lower extremity. Patient has been having difficulty performing activity of daily living. After discussing risks benefits of treatment options, patient elected proceed with surgery. Surgeon: Amber Dow Chicken Cutter: Annita Moura Click Yes if Unassisted: No Anesthesia Type: General Operative Notes Closure Type: primary Specimen(s): none sent Prosthetic devices, grafts, tissues, transplants, or devices: Globus CREO MIS screws, Rise cage Estimated Blood Loss (mL): 75 Blood products transfused: none Patient admitted to the hospital for the above-mentioned procedure. Patient consented to the same. Patient underwent L4-L5 fusion April 04, 2024. Patient back in her room recovering well as a stable condition. Patient has worked with physical therapy. Patient mobilizing well. She will continue to limit bending, twisting, lifting. Her 's home to assist her. Multimodal pain management. Follow up outpatient orthopedic clinic in 2 weeks. Discharged home today in stable condition. Exam Vital Signs (past 8 hours): - 04/05/24 08:00 04/05/24 09:08 04/05/24 09:28 Temperature 97.4 F L Pulse Rate 67 Respiratory Rate 16 Blood Pressure 132/67 132/67 Pulse Oximetry 92 95 Oxygen Flow Rate 3 4 Fraction of Inspired Oxygen 40 Fraction of Inspired Oxygen 40 SaO2/FiO2 Ratio 237 Oxygen Delivery Method Nasal Cannula Oxygen Flow Rate 4 Narrative Exam Narrative: See progress note FOR[facility], [facility] Medical History (Updated 04/01/24 @ 11:18 by Arely Yu, RN) History of COVID-19 Thyroid nodule Easy bruisability Pre-diabetes Acid reflux HLD (hyperlipidemia) Seasonal allergies COPD (chronic obstructive pulmonary disease) Surgical History (Updated 04/01/24 @ 11:11 by Arely Yu RN) History of dilation and curettage Hx of bilateral cataract extraction Hx of hernia repair Social History household members: spouse Smoking Status: Former smoker alcohol intake: never Discharge Assessment & Plan Assessment and Plan Assessment: Patient progressing as expected Plan of Treatment: Limit bending, twisting, lifting Keep dressing clean and dry Follow up outpatient orthopedic clinic in 2 weeks Discharge home today in stable condition Discharge Plan Discharge Plan Patient Disposition: Home Discharge orders & Medications Prescriptions: New acetaminophen 325 mg Tablet 650 mg PO Q6H PRN (Reason: Fever/Mild Pain (1-3)) Qty: 60 0RF docusate sodium 100 mg Capsule 100 mg PO BID Qty: 10 0RF oxycodone 5 mg Tablet 5 mg PO Q3H PRN (Reason: Pain, Moderate (4-6)) Qty: 30 0RF Continued albuterol sulfate 90 mcg/actuation Hfa Aerosol Inhaler 2 puff INHALATION Q6H PRN (Reason: Shortness Of Breath) Spiriva Respimat 2.5 mcg/actuation Mist 2 inh INHALATION QAM losartan 100 mg Tablet 100 mg PO DAILY Qty: 0 omeprazole 20 mg Capsule,Delayed Release(Dr/Ec) 20 mg PO DAILY PRN (Reason: GI Upset) Qty: 0 Follow up/Referrals: Amber Dow MD [Physician] - 04/22/24 2:40 pm (Follow up w/ Francisco Arteaga PA-C, at [facility] office in [place].) Toney Valle MD [Primary Care Provider] - Diet/Activity/Treatments Diet: Diet as Tolerated Activity: No deep bending or twisting at the waist. No lifting more than 10 pounds. Cold/Heat Therapy: Heating pad to low back as needed for pain. Skin/Wound/Dressing Care Report to your healthcare provider any signs of infection, such as:: chills, fever, night sweats, unusual drainage and unusual redness Dressing: May shower. Keep dressings as dry as possible. If dressing becomes wet or dirty, may remove and replace with clean, dry gauze. No bathing or otherwise soaking incisions. Do not apply any creams, lotions, or ointments to incisions. Visit Report/Discharge Packet Instructions: DI for Prescription Opioid Use, DI for Transforaminal Lumbar Interbody Fusion Stand Alone Forms: Patient Portal/API, Stroke Signs & Symptoms, Surgery Discharge Discharge Data Primary Care Provider: Toney Valle VTE Deep Vein Thrombosis/Pulmonary Embolism Present on Admission: No
--- NOTE | 2024-04-05 11:37 | CM.DANOTE ---
Brief DCP Assessment note pt is a 78yo F following planned TLIF with Dr. Dow on 04.04.24, pt is POD1. PCP Toney Valle Payer [facility] and self pay ARCH SUPPORT TECHNICIAN reviewed EMR. Per RN report, pt did well with PT, likely to dc home today. Spouse support at home. Pt and spouse live in [place]. Has a walker for home. Per chart, pt cleared to dc home with spouse today. Spouse has been at bedside to transport home P: dc home with spouse, no identified barriers to safe dc home identified at this time. CM team will continue to follow as needed ARPAN Rose Discharge Planning/Care Management CM Discharge Assessment Start: 04/05/24 10:50 Freq: Status: Active Protocol: Document 04/05/24 11:36 SL (Rec: 04/05/24 11:37 [id number]) Discharge Planning Assessment Assigned Topographical Engineer ARPAN [place] DPOA/Assigned Designee Name alok Mcdowell Contact Information [phone] Advance Directives? Yes Advance Directives on File No History Provided By Patient Prior Living Arrangements House Household Members spouse Independent with ADL's Yes Is patient alert and oriented? Yes Barriers to Discharge No Discharge Plan Home Transportation Arrangement spouse in POV Referrals Initiated None needed Whiteboard Updated in Patient Room with No name and ext. # of Topographical Engineer Review Status In Process Please Provide Date Initial DC 04/05/24 Assessment Was Performed Next Review Type Continued Stay Review Pre-Anesthesia Assessment Start: 04/01/24 10:57 Freq: Status: Active Protocol: Document 04/01/24 10:57 CAB (Rec: 04/01/24 11:31 CAB [id number]) Pre-Anesthesia Assessment Preferred Name Tasha Patient Information Reviewed Via On-site Review Assessment Completed With Patient,Spouse Primary Care Provider Toney Valle Seen Specialist in Last 12 Months Yes Specialist Seen Orthopedist Primary Language [place] Roller Skate Assembler Required No Height 157.48 cm Weight 97.069 kg Body Mass Index (BMI) 39.1 Hearing Ability Normal Visual Assist Glasses Dentition Type Full- Upper & Lower Barriers to Learning None Hx Anesthesia Reactions No Hx Family Anesthesia Reaction No Hx Malignant Hyperthermia No Hx Blood Transfusion Reaction No Anesthesia Review Requested No Cone Examiner No alcohol intake never Smoking Status Former smoker how long ago did patient quit smoking Approx 20 years ago Substance Use Type does not use Pain Present Pain Reported Musculoskeletal Symptoms Abnormal Gait,Back Pain, Difficulty Walking,Joint Pain History of Falling (Recent or History of No ) Patient is completely paralyzed or No completely immobile Mental Status Oriented to own ability Is patient on oxygen? No Does patient have VYAS/SOB Yes Hx Sleep Apnea No CPAP/BIPAP use not prescribed Currently Taking a Beta Hayley No Can You Climb a Flight of Stairs Without No SOB Hx Chest Pain No Hx SOB Yes Hx Syncope or Dizziness Yes: Occasional dizziness Anti-Coagulant Therapy No Has a Manager Etl No Cardiac Testing No Hx Pacemaker/ICD No Pacemaker Rep Required? No Cardiac Clearance Received No Diet Type At Home Regular,Dysphagia Dysphagia Yes Gastrointestinal Symptoms Bloating Chronic UTI No Urinary Catheter Present No Hx Urinary Self Catheterization No Diabetes No Patient No Lactating No Hx Drug Resistant Organism No Presence of External or Internal Medical No Devices Received a COVID vaccine? Yes Marital Status m Lives With spouse Current Living Arrangements House Number of Floors (Floors) Two Floors Number of Stairs To Enter/Railing? 4 Support System Child/Children,Spouse Does the Patient Have Assistance After Yes Surgery Patient Discharge Plan Description Return Home Comment Pt advised overnight length of stay per surgeon Feels Safe in Current Environment Yes Been Physically Hurt or Threatened By a No Person in Current Environment Do you have thoughts of harming yourself None or others? Are you currently considering suicide? No Do you have a plan to hurt yourself or No Plan others? Do You Have Any Spiritual Beliefs That No May Affect Your HC Choices? Do You Have Any Cultural Practices That No May Affect Your HC Choices? Comment Confucianism Who Can We Speak to About Patient's Care Family, friends Identifying Code for Release of Patient Declines to issue Information Health Care Proxy/Next of Kin Matias () Health Care Proxy Emergency Contact Name Zacarias (son) Emergency Contact Advance Directives? Yes Advance Directives on File No Requested Patient Bring Advanced Yes Directives DOS Power of Octave Board Assembler Yes Power of Octave Board Assembler Name Matias () Power of Octave Board Assembler PAC Instructions Durable medical equipment, Medications to take/avoid, Nasal antibiotic,No ETOH/ petroleum product on skin DOS, NPO,Pre-surgical wash,Sensory aids,Sturdy shoes/comfortable clothes,Do not bring valuables and remove jewelry
--- NOTE | 2024-04-05 11:53 | OT.IP.EVAL ---
Current Diagnoses Spondylolisthesis, lumbar region (04/04/24) Spinal stenosis, lumbar region without neurogenic claudication (04/04/24) Surgery Performed Operation Date: 04/04/24 12:45 Actual Procedures p L4 - 5 TLIF(Not Applicable) - Amber Dow MD Past Medical History (Last Updated 04/01/24 @ 11:18 by Arely Yu, RN) Acid reflux COPD (chronic obstructive pulmonary disease) Easy bruisability History of COVID-19 HLD (hyperlipidemia) Pre-diabetes Seasonal allergies Thyroid nodule Surgical History (Last Updated 04/01/24 @ 11:11 by Arely Yu, RN) History of dilation and curettage Hx of bilateral cataract extraction Hx of hernia repair Occupational Therapy Inpatient Evaluation/Re-Eval M1 PT/OT-IP Prior Functional Status Start: 04/05/24 11:55 Freq: NEEDED Status: Active Protocol: Document 04/05/24 11:58 [facility] (Rec: 04/05/24 12:08 [facility] [id number]) Medical Review Prior Functional Status Medical History Reviewed Yes Communication I Mobility and Gait I, but had pain and at times her back would seize up per pt after up on her feet. Activities of Daily Living and IADL's I, but had pain. Social History Household Members spouse Living Arrangements House Number of Floors (Floors) Two Floors Number of Stairs To Enter/Railing? 4 steps with left rail to enter the house. Home Environment High Toilet,Walk in Shower,Tub /Shower,Built-In Shower Seat Home Equipment Four Wheel Walker,Straight Cane,Hand Held Shower,Long Handled Shoe Horn,Editor House Organ,Grab Bars In Shower Additional Social History Comment Pt has a supportive to assist her at home. M2 OT-IP Current Condition Start: 04/05/24 11:55 Freq: Status: Active Protocol: Document 04/05/24 11:58 [facility] (Rec: 04/05/24 12:08 [facility] [id number]) Occupational Therapy Current Condition Current Condition Evaluation Date 04/05/24 Treatment Diagnosis S/P L4-5 TLIF Diagnosis Onset Date 04/04/24 Post Operative Precautions Lumbar Precautions Log Roll,No Twisting,Limit Bending,Lifting Restriction of 10 lbs,Gait Belt above Incisional Area M3 OT- IP Subjective and Pain Start: 04/05/24 11:55 Freq: Status: Active Protocol: Document 04/05/24 11:58 [facility] (Rec: 04/05/24 12:08 [facility] [id number]) OT- Subjective Occupational Therapy Visit Type Type Initial Evaluation Visit Start Time 11:23 Visit Stop Time 11:54 Occupational Therapy Visit Comments Patient Comments Pt agreed to get dressed and her present in the room. Patient/Caregiver Goals TO go home. OT Pain Assessment Pain When Pain Assessed At Rest Pain Present Pain Present Pain Reported Location back Intensity 2 Scale Used Numeric (0 - 10) M4 OT- IP ADL's Start: 04/05/24 11:55 Freq: Status: Active Protocol: Document 04/05/24 11:58 [facility] (Rec: 04/05/24 12:08 [facility] [id number]) OT OCI-Pbbu-Pzzayeg General Evaluation Self-Feeding Ability Independent OT ADL-Grooming General Evaluation Grooming Ability Independent Comments OT Grooming Comments Able to do while standing at the sink with FWW. OT ADL-Oral Care General Eval Oral Care Ability Independent OT ADL-Dressing General Eval Upper Body Dressing Ability Minimal Assistance Lower Body Dressing Ability Minimal Assistance Areas Needing Assistance Socks Comments OT Dressing Comments Assist for her bra and to doff her socks. Pt to wear her slip on shoes. Suggested to attach her field agronomist on the walker. OT ADL-Toileting Comments OT Toileting Comments Educated pt on standing to wipe and use of wet ones and best to obtain a toilet paper aid to assist with hygiene needs. Suggested to wear pad if needed so not to hurry to the bathroom at night. OT ADL-Bathing Comments OT Bathing Comments Pt states to shower at home. Educated to cover the dressing from getting wet in the shower. M5 OT- IP IADL's Start: 04/05/24 11:55 Freq: Status: Active Protocol: Document 04/05/24 11:58 [facility] (Rec: 04/05/24 12:08 [facility] [id number]) OT-Instrumental Activities of Daily Living Deficits IADL Deficits Identified Deficits Home Safety Awareness Awareness of Need for Assistance at Home Good Awareness Ability to Problem Solve Emergency Able to Problem Solve Situations Home Safety Comments Pt's to assist her needs. Medication Management Medication Management No Deficits Identified Money Management Money Management No Deficits Identified Meal Preparation Meal Preparation Comments Pt's to assist. Stock Wetter Stock Wetter Comments Pt's to assist. M6 OT- IP Functional Cognition Start: 04/05/24 11:55 Freq: Status: Active Protocol: Document 04/05/24 11:58 [facility] (Rec: 04/05/24 12:08 [facility] [id number]) Cognitive Factors Limiting Selfcare Function Cognitive Ability Level of Alertness Alert Patient Orientation Name,Age,Birthday,Month,Date, Year,Day of Week,Place, Situation Attention Span Ability Capable of Focused Attention, Capable of Sustained Attention Ability to Follow Commands Able to Follow Multi-Step Commands Memory Description No Deficits Noted Safety Awareness Decreased Ability to Apply Precautions Cognitive Comments Cognitive Assessment Comments Pt needing reminders to incorporate her back precautions as tends to move too fast. OT- Vision and Hearing OT- Hearing Assessment OT- Hearing Assessment WFL OT- Vision Assessment Visual Acuity Glasses For Reading Visual Attentiveness WFL Occular Pursuits WFL M7 OT- IP Mobility and Balance Start: 04/05/24 11:55 Freq: Status: Active Protocol: Document 04/05/24 11:58 [facility] (Rec: 04/05/24 12:08 [facility] [id number]) OT-Transfer Assessment Sit to and From Stand Sit to and from Stand Standby Assistance Transfers Transfer Ability Standby Assistance Technique Transfer Destination Chair Transfer Technique Stand Step Pivot Devices Transfer Assistive Devices None,Front Wheeled Walker Comments Mobility Comments SBA to stand form the recliner and walk to the sink. VC to keep the walker in front of her. OT- Balance Assessment Sitting Balance and Reactions Static Sitting Balance Ability Normal Dynamic Sitting Balance Ability Good Standing Balance and Reactions Static Standing Balance Ability Good Dynamic Standing Balance Ability Good M8 OT- IP Objective Assessments Start: 04/05/24 11:55 Freq: Status: Active Protocol: Document 04/05/24 11:58 [facility] (Rec: 04/05/24 12:08 [facility] [id number]) OT Gross Range of Motion Upper Extremity Range of Motion Assessment Within Functional Limits OT Strength Upper Extremity Strength Assessment Within Functional Limits M9 OT- IP Assessment and Plan Start: 04/05/24 11:55 Freq: Status: Active Protocol: Document 04/05/24 11:58 [facility] (Rec: 04/05/24 12:08 [facility] [id number]) OT Summary Assessment and Plan Potential Rehabilitation Potential Excellent Analytic Complexity at Evaluation Low Summary OT Impairments Pain,Balance,Functional Mobility,Dressing,Toileting, Bathing,Toilet Transfers, Shower Transfers Progress Towards Goals Progressing Toward Goals Assessment Summary Pt low complexity and main barriers are steps, pain, and to slow down and to incorporate her back precautions. Pt to go home with her to assist. Pt will benefit from a toilet paper aid. Goals Grooming Goal Independent Dressing Goal Independent,Editor House Organ Toileting Goal Independent,Toilet Paper Aid Bathing Goal Standby Assistance Toilet Transfer Goal Independent Shower Transfer Goal Standby Assistance Days to Meet Goals 3 Frequency of Treatment Frequency Of Treatment Once a Day Treatment Plan OT Treatment Plan ADL Training,Functional Mobility,Patient/Family Education,Discharge Planning Discharge Recommendations OT Discharge Recommendations Home with Assistance Home Equipment Needs Toilet paper aid Transportation Needs at Discharge Private Vehicle
--- NOTE | 2024-04-05 12:59 | PC.NURSE ---
Discharge Note Patient A&O, VSS, RA, no complaints of pain/discomfort. Discharge packet reviewed with patient, all questions/concerns addressed. PIV discontinued. Dressing changed. Patient able to dress self and pack all belongings. Patient taken down via wheelchair to POV.
== END 2024-04-05 12:30 | disposition home or self-care (01) | DRG 455 ==
PROVIDERS: Admitting Provider Orthopaedic Surgery Orthopaedic Surgery of the Spine; Family Provider Internal Medicine; PCP Internal Medicine; Referring Provider Internal Medicine; Visit Provider Orthopaedic Surgery Orthopaedic Surgery of the Spine
PROC: 0SG00AJ Fusion of Lumbar Vertebral Joint with Interbody Fusion Device, Posterior Approach, Anterior Column, Open Approach (ICD-10-PCS; principal; 2024-04-04 12:45)
DX: M43.16 Spondylolisthesis, lumbar region (principal); M48.061 Spinal stenosis, lumbar region without neurogenic claudication; M47.26 Other spondylosis with radiculopathy, lumbar region; J44.9 Chronic obstructive pulmonary disease, unspecified; K21.9 Gastro-esophageal reflux disease without esophagitis; I10 Essential (primary) hypertension; Z87.891 Personal history of nicotine dependence
CPT/HCPCS: 72100; 76000; 94640; 94762; 97116; 97162; 97165; 97530; 97535; C1713; C1831; C9290; J0171; J0330; J0690; J1100; J1170; J2405; J2704; J3010; J3410; J7613